=== PATIENT | male | born 1960 | race Caucasian/White ===

== ENCOUNTER 2021-07-17 14:38 | Emergency (ER) | payer SELFPAY ==
[~2021-07-17] VITALS: Ht 172.7 cm; Wt 127.0 kg
[2021-07-17] MEDS ORDERED: ONDANSETRON 4 MG/2 ML (SDV) Z0FRAN IVP ONE (15:00)
[2021-07-17] MEDS ORDERED: fentaNYL INJ 100 MCG/2 ML AMP IVP ONE (15:00)
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
[2021-07-17 15:14] LABS: BASOPHILS % (AUTO) 0 % (0-10); EOSINOPHILS % (AUTO) 0 % (0-10); HEMATOCRIT 45 % (40-54); HEMOGLOBIN 14.1 g/dL (13.3-17.7); LYMPHOCYTES # (AUTO) 1.3 10^3/uL (1.0-4.0); LYMPHOCYTES % (AUTO) 13 % (12-44); MEAN CORPUSCULAR HEMOGLOBIN 28 pg (25-34); MEAN CORPUSCULAR HGB CONC 32 g/dL (32-36); MEAN CORPUSCULAR VOLUME 89 fL (80-99); MEAN PLATELET VOLUME 11.9 fL (9.0-12.2); MONOCYTES # (AUTO) 0.7 10^3/uL (0.0-1.0); MONOCYTES % (AUTO) 8 % (0-12); NEUTROPHILS # (AUTO) 7.2 10^3/uL (1.8-7.8); NEUTROPHILS % (AUTO) 78 % (42-75); PLATELET COUNT 347 10^3/uL (130-400); WHITE BLOOD COUNT 9.3 10^3/uL (4.3-11.0)
[2021-07-17 15:24] LABS: ALBUMIN 3.9 GM/DL (3.2-4.5); POTASSIUM 3.5 MMOL/L (3.6-5.0)
[2021-07-17 15:25] LABS: CALCIUM 9.1 MG/DL (8.5-10.1)
[2021-07-17 15:27] LABS: TOTAL PROTEIN 8.7 GM/DL (6.4-8.2)
[2021-07-17 15:28] LABS: BILIRUBIN,TOTAL 0.5 MG/DL (0.1-1.0)
[2021-07-17 15:30] LABS: CREATININE SERUM 1.08 MG/DL (0.60-1.30)
[2021-07-17 15:33] LABS: FIBRIN DEGRADATION PRODUCTS 15.54 UG/ML (0.00-0.49); PROTHROMBIN TIME PATIENT 13.5 SEC (12.2-14.7)
[2021-07-17] MEDS ORDERED: NS 100 ML (IVPB) BAG IV ONE (16:00)
[2021-07-17] MEDS ORDERED: HOLD METFORMIN - RECEIVED CONTRAST 20 ML VIAL IV SCH (16:00)
[2021-07-17] MEDS ORDERED: IOHEXOL 350 MG/ML 100 ML (OMNIPAQUE 350) VIAL IV ONE (16:00)
--- NOTE | 2021-07-17 16:12 | Diagnostic Imaging Report ---
EXAMINATION: Portable erect AP chest at 4:03 p.m. INDICATION: Cough, shortness of breath. COMPARISON: There are no prior studies available for comparison. The heart size is within normal limits. There are alveolar/interstitial pulmonary infiltrates involving both lung bases consistent with pneumonia/atelectasis. The possibility of Covid 19 should be considered. The upper lungs are clear. There is no significant pleural effusion identified. The mediastinum is not widened. The osseous structures are intact. IMPRESSION: 1. There is bibasilar pneumonia/atelectasis. The possibility that these findings are related to Covid 19 should certainly be considered. 2. Reportedly, CTA of the chest is pending for further study. Dictated by: Dictated on workstation # [id number]
[2021-07-17] MEDS ORDERED: morphine INJ 10 MG/ML 1ML (SYR OR VIAL) IVP STA (16:16)
--- NOTE | 2021-07-17 16:29 | Diagnostic Imaging Report ---
INDICATION: Elevated d-dimer, soa abdominal pain. EXAMINATION: CTA chest, abdomen and pelvis. Thin axial sections through the chest, abdomen and pelvis are obtained following intravenous contrast bolus. Multiplanar MIP images were reconstructed and reviewed. All CT scans use one or more of the following dose optimizing techniques: automated exposure control, MA and/or KvP adjustment based on patient size and exam type or iterative reconstruction. COMPARISON: There are no prior CT chest, abdomen and pelvis examinations available for comparison. FINDINGS: The plain film examination of the chest performed just prior to the study noted bibasilar pneumonia/atelectasis. On this exam, there is mild bibasilar atelectasis/pneumonia involving each lung base. There is also a small amount of fluid in the left lung base and minimal fluid in the right lung base. The fluid in the left lung base measures 1.7 cm in maximum depth while the fluid in the right lung base measures only 5 mm. In addition to the atelectasis/infiltrate there is a lobulated somewhat spiculated mass in the left midlung. This measures 2.3 x 3.2 cm. This could represent a focal area of pneumonia/atelectasis. The possibility that this is neoplastic in nature cannot be entirely excluded. The upper lungs are generally clear. The heart size is within normal limits. The aorta is not abnormally dilated and there is no sign of a dissection. There is no defect within the pulmonary arteries to indicate a pulmonary embolus. There is no mediastinal or hilar adenopathy. The thyroid gland, where visualized, is unremarkable. The images through the abdomen and pelvis show that there is a moderate to large amount of ascites. The liver and spleen are not enlarged and the liver does not have a cirrhotic appearance. Consequently, the etiology of the ascites is not certain. The pancreas, adrenals, gallbladder, kidneys, aorta, inferior vena cava and portal vein show no sign of an acute abnormality. The stomach is filled with fluid and difficult to assess. There is a fair amount of radiopaque material throughout the colon intermixed with fecal material. This could be secondary to ingested medication. There is no sign of a bowel obstruction. The urinary bladder and prostate gland are grossly unremarkable. The bone windows show no sign of a fracture or a destructive lesion. IMPRESSION: 1. There is mild bibasilar pneumonia/atelectasis and small bilateral pleural effusions. There is no acute cardiopulmonary abnormality noted otherwise. In particular, there is no sign of an aortic dissection or of a pulmonary embolus. 2. The 2.3 x 3.2 cm density in the left midlung is of uncertain etiology. While this could be related to pneumonia/atelectasis the possibility that this is neoplastic in nature cannot be entirely excluded. A short-term (4-6 week) follow-up CT chest exam would be recommended for further study. 3. There is a moderate to large volume of ascites. This is of uncertain etiology. 4. There is no acute abnormality of the abdomen or pelvis noted otherwise. Dictated by: Dictated on workstation # [id number]
[2021-07-17] MEDS ORDERED: ACHD5005 PO (17:42)
[2021-07-17] MEDS ORDERED: CEFD300C3 PO (17:42)
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
[2021-07-17] MEDS ORDERED: CEFDINIR 300 MG (OMNICEF) CAP PO ONE (17:45)
[2021-07-17 18:04] VITALS: BP 115/93
[2021-07-17 19:26] LABS: ALBUMIN,BODY FLUID 2.5 G/DL; AMYLASE,BODY FLUID 23 U/L; BODY FLUID TRIGLYCERIDES 52 MG/DL; GLUCOSE,BODY FLUID 244 MG/DL
--- NOTE | 2021-07-17 19:30 | OPERATIVE REPORT ---
DATE OF SERVICE: 07/17/2021 PREOPERATIVE DIAGNOSIS: Symptomatic ascites. POSTOPERATIVE DIAGNOSIS: Symptomatic ascites. PROCEDURE PERFORMED: Paracentesis under ultrasound guidance. SURGEON: Mattie Santana MD. ANESTHESIA: Local. ESTIMATED BLOOD LOSS: Minimal. FINDINGS: Straw yellow transudative fluid. DISPOSITION: The patient tolerated the procedure well. INDICATIONS FOR PROCEDURE: The patient is a 61-year-old male, who states that he has developed abdominal distention for the past month of unknown cause. He states that with the abdominal distention, this has caused a compressive effect on his lungs and exertional shortness of breath. An ultrasound of the abdomen was performed, which did show significant amount of ascites. He does not have a primary care physician and does not report any past medical history from what he knows of. He does have a positive fluid shift wave upon examination consistent with ascites as well. DESCRIPTION OF PROCEDURE: The abdomen was prepped and draped in a standard surgical fashion. In the right lower abdominal quadrant, the skin, subcutaneous tissue, fascia, and muscle layers as well as the peritoneal lining were anesthetized using 1% lidocaine. A vertical skin incision was made using a #11 blade and the trocar and catheter were then introduced withdrawing of straw yellow transudative fluid. The catheter was then advanced over the trocar without any resistance. The catheter was then connected to vacuum container, where at least 3 liters of straw-yellow transudative fluid was evacuated. Catheter was then removed and covered with Op-Site. The patient tolerated the procedure well. We will send the fluid off for laboratory analysis as well as cytology. Job ID: [id number] DocumentID: [id number] Dictated Date: 07/17/2021 17:23:48 Sander Operator Date: 07/17/2021 19:30:12 Dictated By: MATTIE SANTANA MD
[2021-07-17 19:40] LABS: LDH,BODY FLUID 205 U/L
[2021-07-17 20:21] LABS: BODY FLUID APPEARENCE CLEAR; BODY FLUID COLOR YELLOW; BODY FLUID RBC COUNT 6 /uL; BODY FLUID SOURCE PERITONEAL; BODY FLUID WBC TOTAL COUNT 14 /uL
[2021-07-17 20:57] LABS: BF OTHER CELLS 0 %; LYMPHOCYTES,BODY FLUID 52 %
== END 2021-07-17 18:04 | disposition other institution (70) ==
LOC: ER 14:42
DX: R18.8 Other ascites (principal); R91.1 Solitary pulmonary nodule; Z20.822 Contact with and (suspected) exposure to COVID-19
CPT/HCPCS: 36415; 71045; 71275; 74177; 80053; 82042; 82150; 82945; 83615; 83690; 83880; 84478; 85025; 85379; 85610; 86141; 87070; 87205; 87636; 89051

== ENCOUNTER 2021-07-23 17:03 | Emergency (ER) | payer SELFPAY ==
[~2021-07-23] VITALS: Ht 172.7 cm; Wt 81.6 kg
[~2021-07-23 17:03] MED LIST: ACHD5005 PO; CEFD300C3 PO
[2021-07-23 17:35] LABS: BASOPHILS % (AUTO) 0 % (0-10); EOSINOPHILS % (AUTO) 0 % (0-10); HEMATOCRIT 44 % (40-54); HEMOGLOBIN 14.6 g/dL (13.3-17.7); LYMPHOCYTES # (AUTO) 0.8 X 10^3 (1.0-4.0); LYMPHOCYTES % (AUTO) 8 % (12-44); MEAN CORPUSCULAR HEMOGLOBIN 28 pg (25-34); MEAN CORPUSCULAR HGB CONC 33 g/dL (32-36); MEAN CORPUSCULAR VOLUME 85 fL (80-99); MEAN PLATELET VOLUME 11.8 fL (9.0-12.2); MONOCYTES # (AUTO) 0.7 X 10^3 (0.0-1.0); MONOCYTES % (AUTO) 7 % (0-12); NEUTROPHILS # (AUTO) 8.6 X 10^3 (1.8-7.8); NEUTROPHILS % (AUTO) 84 % (42-75); PLATELET COUNT 376 10^3/uL (130-400); WHITE BLOOD COUNT 10.3 10^3/uL (4.3-11.0)
[2021-07-23 17:50] LABS: CHLORIDE 87 MMOL/L (98-107); POTASSIUM 4.7 MMOL/L (3.6-5.0); SODIUM 130 MMOL/L (135-145)
[2021-07-23 17:51] LABS: ACETAMINOPHEN < 10 UG/ML (10-30); ALANINE AMINOTRANSFERASE 8 U/L (0-55); ALBUMIN 3.4 GM/DL (3.2-4.5); ALKALINE PHOSPHATASE 69 U/L (40-136); BILIRUBIN,TOTAL 0.4 MG/DL (0.1-1.0); BUN/CREATININE RATIO 33; CARBON DIOXIDE 29 MMOL/L (21-32); CREATININE SERUM 1.01 MG/DL (0.60-1.30); GFR ESTIMATED 84; GLUCOSE 368 MG/DL (70-105); SALICYLATE < 0.3 MG/DL (5.0-20.0); TOTAL PROTEIN 8.3 GM/DL (6.4-8.2)
--- NOTE | 2021-07-23 17:56 | Diagnostic Imaging Report ---
EXAMINATION: Chest 1 view. HISTORY: Short of breath. COMPARISON: 07/17/2021. FINDINGS: Heart size and pulmonary vasculature are normal. There are linear opacities within the lung bases. Patchy interstitial opacities are also present within the lower lungs. No pleural effusion or pneumothorax. Degenerative changes of the thoracic spine. Osseous structures are otherwise intact. IMPRESSION: Linear opacities in the lung bases which may represent scarring with superimposed atelectasis, atypical infection or pneumonia. The lungs are minimally improved from 07/17/2021. Dictated by: Dictated on workstation # [id number]
[2021-07-23] MEDS ORDERED: NS IV 1000 ML 1,000 ML IV STA (18:02)
[2021-07-23] MEDS ORDERED: morphine INJ 10 MG/ML 1ML (SYR OR VIAL) IVP STA (18:02)
[2021-07-23] MEDS ORDERED: ONDANSETRON 4 MG/2 ML (SDV) Z0FRAN IVP STA (18:02)
[2021-07-23 18:03] LABS: LYMPHOCYTES % (MANUAL) 6 %; MONOCYTES % (MANUAL) 4 %; NEUTROPHILS % (MANUAL) 90 %
[2021-07-23] MEDS ORDERED: IOHEXOL 350 MG/ML 100 ML (OMNIPAQUE 350) VIAL IV ONE (18:15)
[2021-07-23] MEDS ORDERED: CATHETER FLUSH 10 ML SYR IV PRN (18:15)
[2021-07-23] MEDS ORDERED: NS 100 ML (IVPB) BAG IV ONE (18:15)
[2021-07-23] MEDS ORDERED: HOLD METFORMIN - RECEIVED CONTRAST 20 ML VIAL IV SCH (18:15)
--- NOTE | 2021-07-23 18:28 | ED General ---
General Chief Complaint: Abdominal/GI Problems Stated Complaint: UNABLE TO EAT,VOMITTING Nursing Triage Note: PT ARRIVED BY PRIVATE VEHICLE WITH CHIEF COMPLAINT OF ABDOMINAL PAIN. PT HAD BEEN CHECKED IN AND JOSE ASKED PATIENT'S TO PUT A MASK ON AND SHE WAS YELLING AT THE TOP OF HER LUNGS AT REGISTRATION. I WENT UP AND SHE WOULD NOT ALLOW ME TO TALK. I CALLED PD TO COME ESCORT HER OUT. AFTER SHE WALKED OUTSIDE, THE PATIENT WAS WHEELED BACK TO ROOM 3 WHERE HE WAS ASSISTED TO THE BED. PT WAS SEEN LAST MONDAY NIGHT IN [facility] WHERE HE SAID THEY DRAINED 6 LITERS OF FLUID OFF OF HIS STOMACH. PT STATED HE WENT TO FOLLOWUP AND ESTHER WOULD NOT SEE HIM BECAUSE HE DOES NOT HAVE INSURANCE. PT STAED HE WANTS ANSWERS. PT STATED HIS PAIN HAS INCREASED. VITALS WERE DONE, IV WAS STARTED, PT WAS HOOKED UP TO RN HOUSE SUPERVISOR, AND REPORT WAS GIVEN TO THE PROVIDER. Source of Information: Patient, Old Records History of Present Illness Date Seen by Provider: Jul 23, 2021 Time Seen by Provider: 17:08 Initial Comments 61-year-old male presenting with complaints of nausea and vomiting for 12 days and abdominal distention with pain. He is short of breath due to the abdominal distention. He denies having any fever or chills. He has not been able to keep anything down at home. He states that even drinking fluids were having a small amount of food might stay down for a short while but then it comes back up. He was seen last weekend at the emergency department and [place] and had 5 L of ascites drawn off of his abdomen. He states that he had never known that it was ascites or fluid that was in his belly until then. He was doing a little better and was sent home. He was to follow-up with Dr. SANTANA about the results of the paracentesis but when he went to the clinic he states that they had wanted money upfront to be seen since he does not have insurance. He had left without being seen in the clinic and because he was still having issues he came to the emergency department today. He denies having any primary provider to follow-up with. He states that he moved here from [place] and has never established with a provider. He denies having a history of liver disease or cancer. He does have a spot that looked concerning on his lung when they did a CT last week and it was recommended that a repeat scan be obtained in 4 to 6 weeks. Timing/Duration: Other (Over 12 days of nausea and vomiting and not being able to keep anything down) Modifying Factors: worse with Eating Associated Systoms: No Chest Pain, No Cough, No Diaphoresis, No Fever/Chills, No Headaches; Malaise, Nausea/Vomiting; No Seizure; Shortness of Air; No Syncope; Weakness (generalized) Allergies and Home Medications Allergies Coded Allergies: canola oil (Verified Allergy, Unknown, 07/17/21) Patient Home Medication List Home Medication List Reviewed: Yes Cefdinir (Cefdinir) 300 Mg Capsule, 300 MG PO BID Prescribed by: MINE QUINTANILLA on 07/17/211741 Hydrocodone/Acetaminophen (Hydrocodone-Acetamin 5-325 mg) 1 Each Tablet, 1 TAB PO Q4H PRN for PAIN-MODERATE (5-7) Prescribed by: MINE QUINTANILLA on 07/17/211742 Hydrocodone/Acetaminophen (Hydrocodone-Acetamin 5-325 mg) 1 Each Tablet, 1 TAB PO Q6H PRN for PAIN-SEVERE (8-10) Prescribed by: SOFIA POST on 07/23/211936 Ondansetron (Ondansetron Odt) 4 Mg Tab.rapdis, 4 MG PO Q6H PRN for NAUSEA/VOMITING Prescribed by: SOFIA POST on 07/23/211935 Review of Systems Review of Systems Constitutional: see HPI, malaise, weakness (general) EENTM: no symptoms reported Respiratory: short of breath; No stridor, No wheezing Cardiovascular: No chest pain, No edema Gastrointestinal: see HPI, abdominal pain (central abdominal pain feeling like it is stretching), dysphagia (pain when he swallows); No hematemesis, No jaundice; nausea, vomiting Genitourinary: decreased output; No dysuria Musculoskeletal: back pain Skin: dryness Psychiatric/Neurological: Anxiety, Weakness (generalized) Past Nntxnlx-Mjfepe-Zowgtc Hx Patient Social History Tobacco Use?: Yes Tobacco type used: Cigarettes Substance use?: No Alcohol Use?: No Pt feels they are or have been: No Immunizations Up To Date First/Initial COVID19 Vaccinat: NONE Second COVID19 Vaccination Jaspreet: NONE Third COVID19 Vaccination Date: NONE Physical Exam Vital Signs Vital Signs - First Documented 07/23/21 17:05 Temp 36.1 Pulse 103 Resp 16 B/P (MAP) 117/81 (93) Pulse Ox 98 O2 Delivery Room Air Capillary Refill : Less Than 3 Seconds Height, Weight, BMI Height: '" Weight: lbs. oz. kg; 27.00 BMI Method: General Appearance: Anxious, Chronically ill, Other (distended abdomen) HEENT: PERRL/EOMI; No Moist Mucous Membranes (slightly dry mucous membranes) Neck: Full Range of Motion, Normal Inspection, Non Tender, Supple Respiratory: Chest Non Tender, No Accessory Muscle Use, No Respiratory Distress, Decreased Breath Sounds Cardiovascular: Regular Rate, Rhythm, No Murmur, Normal Peripheral Pulses Gastrointestinal: No Pulsatile Mass, Soft, Abnormal Bowel Sounds (hypoactive bowel sounds), Distended (fluid wave on exam); No Rebound; Tenderness (diffuse tenderness with pain worse in middle of abdomen) Extremity: Normal Capillary Refill, Normal Inspection, No Pedal Edema Neurologic/Psychiatric: Alert, Oriented x3 Skin: Normal Color, Warm/Dry Focused Exam Lactate Level 07/23/21 17:20: Lactic Acid Level 1.76 Lactic Acid Level Laboratory Tests Test 07/23/21 17:20 Lactic Acid Level 1.76 MMOL/L (0.50-2.00) Progress/Results/Core Measures Suspected Sepsis SIRS Temperature: Pulse: 103 Respiratory Rate: 16 Laboratory Tests 07/23/21 17:20: White Blood Count 10.3 Blood Pressure 117 /81 Mean: 93 07/23/21 17:20: Lactic Acid Level 1.76 Laboratory Tests 07/23/21 15:20: Creatinine 1.01, Total Bilirubin 0.4 07/23/21 17:20: Platelet Count 376 Results/Orders Lab Results Laboratory Tests Test 07/23/21 15:20 07/23/21 17:20 Range/Units Sodium Level 130 L 135-145 MMOL/L Potassium Level 4.7 3.6-5.0 MMOL/L Chloride Level 87 L 98-107 MMOL/L Carbon Dioxide Level 29 21-32 MMOL/L Anion Gap 14 5-14 MMOL/L Blood Urea Nitrogen 33 H 7-18 MG/DL Creatinine 1.01 0.60-1.30 MG/DL Estimat Glomerular Filtration Rate 84 BUN/Creatinine Ratio 33 Glucose Level 368 H 70-105 MG/DL Calcium Level 9.0 8.5-10.1 MG/DL Corrected Calcium 9.5 8.5-10.1 MG/DL Total Bilirubin 0.4 0.1-1.0 MG/DL Aspartate Amino Transf (AST/SGOT) 8 5-34 U/L Alanine Aminotransferase (ALT/SGPT) 8 0-55 U/L Alkaline Phosphatase 69 40-136 U/L Total Protein 8.3 H 6.4-8.2 GM/DL Albumin 3.4 3.2-4.5 GM/DL Salicylates Level < 0.3 L 5.0-20.0 MG/DL Acetaminophen Level < 10 L 10-30 UG/ML Serum Alcohol < 10 <10 MG/DL White Blood Count 10.3 4.3-11.0 10^3/uL Red Blood Count 5.20 4.30-5.52 10^6/uL Hemoglobin 14.6 13.3-17.7 g/dL Hematocrit 44 40-54 % Mean Corpuscular Volume 85 80-99 fL Mean Corpuscular Hemoglobin 28 25-34 pg Mean Corpuscular Hemoglobin Concent 33 32-36 g/dL Red Cell Distribution Width 12.5 10.0-14.5 % Platelet Count 376 130-400 10^3/uL Mean Platelet Volume 11.8 9.0-12.2 fL Immature Granulocyte % (Auto) 1 % Neutrophils (%) (Auto) 84 H 42-75 % Lymphocytes (%) (Auto) 8 L 12-44 % Monocytes (%) (Auto) 7 0-12 % Eosinophils (%) (Auto) 0 0-10 % Basophils (%) (Auto) 0 0-10 % Neutrophils # (Auto) 8.6 H 1.8-7.8 X 10^3 Lymphocytes # (Auto) 0.8 L 1.0-4.0 X 10^3 Monocytes # (Auto) 0.7 0.0-1.0 X 10^3 Eosinophils # (Auto) 0.0 0.0-0.3 10^3/uL Basophils # (Auto) 0.0 0.0-0.1 10^3/uL Immature Granulocyte # (Auto) 0.1 0.0-0.1 10^3/uL Neutrophils % (Manual) 90 % Lymphocytes % (Manual) 6 % Monocytes % (Manual) 4 % Lactic Acid Level 1.76 0.50-2.00 MMOL/L Ammonia 43 H 11-32 UMOL/L My Orders Orders - SOFIA POST MD Cbc With Automated Diff (07/23/21 17:28) Comprehensive Metabolic Panel (07/23/21 17:28) Alcohol (07/23/21 17:28) Acetaminophen (07/23/21 17:28) Salicylate (07/23/21 17:28) Ekg Tracing (07/23/21 17:28) Ed Iv/Invasive Line Start (07/23/21 17:28) Monitor-Rhythm Ecg Trace Only (07/23/21 17:28) Blood Culture (07/23/21 17:28) Lactic Acid Analyzer (07/23/21 17:) Chest 1 View Ap/Pa Only (07/23/21:) Ammonia (07/23/21:) Manual Differential (07/23/21 17:20) Ns Iv 1000 Ml (Sodium Chloride 0.9%) (07/23/21 18:02) Ondansetron Injection (Zofran Injectio (07/23/21 18:02) Morphine Injection (Morphine Injection (07/23/21 18:02) Ct Abdomen/Pelvis W (07/23/21 18:02) Iohexol Injection (Omnipaque 350 Mg/Ml 1 (07/23/21 18:15) Received Contrast (Hold Metformin- Contr (07/23/21 18:15) Sodium Chloride Flush (Catheter Flush Sy (07/23/21 18:15) Ns (Ivpb) (Sodium Chloride 0.9% Ivpb Bag (07/23/21 18:15) Rx-Ondansetron Po (Rx-Zofran Po) (07/23/21 20:00) Rx-Hydrocodone/Apap 5-325 Mg (Rx-Vicodin (07/23/21 20:00) Medications Given in ED Current Medications Medications Dose Ordered Sig/Leander Route Start Time Stop Time Status Last Admin Dose Admin Acetaminophen/ Hydrocodone Bitart 1 ea Q6H PRN PO 07/23/21 20:00 07/23/21 19:51 1 EA Iohexol 100 ml ONCE ONCE IV 07/23/21 18:15 07/23/21 18:16 DC 07/23/21 18:20 100 ML Ondansetron HCl 4 mg Q6H PRN PO 07/23/21 20:00 07/23/21 19:52 4 MG Sodium Chloride 10 ml NEEDED PRN IV 07/23/21 18:15 07/23/21 18:20 10 ML Sodium Chloride 100 ml ONCE ONCE IV 07/23/21 18:15 07/23/21 18:16 DC 07/23/21 18:20 100 ML Vital Signs/I&O 07/23/21 17:05 Temp 36.1 Pulse 103 Resp 16 B/P (MAP) 117/81 (93) Pulse Ox 98 O2 Delivery Room Air Capillary Refill : Less Than 3 Seconds Blood Pressure Mean: 93 Progress Note #1: Progress Note Advised the patient that since he came to a stand-alone ED, we did not have the ideal set up to drain fluid from his belly but could run tests to see if any change from last week to explain his pain and continued nausea and vomiting. Will check basic labs including cultures, lactic acid, urine, alcohol, acetaminophen, ammonia level. obtain a chest x-ray to look for signs of pneumonia or fluid buildup. Will likely obtain a CT scan of the abdomen and pelvis to further evaluate his ascites. Try giving IV fluids for hydration, Zofran for his nausea, morphine for his pain since he reported that that had helped last week. Progress Note #2: Progress Note Labs appear stable from last week with no acute significant change in his CBC. His alcohol acetaminophen and salicylate levels are all negative. His lactic acid is negative. His chemistry panel shows elevated glucose to 386. He was 266 last week. His sodium was 130. This could be related to electrolyte shifts from his body compensating for the 5 L that were drawn off from his ascitic fluid in his belly. His nausea was improved with medication here. He was asking for ice chips and something to drink. His electrocardiogram did not show any acute ischemia. Chest x-ray appears stable from last week with minimal improvement. Progress Note #3: Progress Note CT scan shows signs of carcinoid peritoneal changes. This could be carcinomatosis from a cancer somewhere in his body. There was no definite s ource of cancer seen on the CT. He does have the mass seen in his lung on scan from last week. The fluid that was drawn off for ascites was tested for culture but I did not see any testing specifically for cytology to look for cancerous type cells. He did have evaluation to look at white blood cells and a chemistry make-up of the fluid. He may need an additional paracentesis to do testing specifically to look for cancer. He may also need to see a oncologist but initially he would need to follow-up with surgery. Since his symptoms are doing a lot better and his testing is stable will discharge to home with medication for nausea and pain. Encouraged to work with the [facility] clinic to get established with a surgeon in follow-up for his symptoms. They can help him get care and further work up for elevated glucose as well. As patient was leaving he did request take-home packs of medication so he has something for overnight with the pharmacies closing. A 4 pack of Zofran and hydrocodone were sent with the patient and prescriptions were sent to the pharmacy the [facility] here in [place] ECG Initial ECG Impression Date: Jul 23, 2021 Initial ECG Impression Time: 17:47 Initial ECG Rate: 97 Initial ECG Rhythm: Normal Sinus Comment AcuteNormal sinus rhythm with a heart rate of 97 bpm. TN interval 152 ms. Low voltage precordial leads. No acute ST elevation. There is artifact on the tracing. QT interval 347 ms with a QTc interval of 441 ms. There is no prior tracing available for comparison. Diagnostic Imaging Diagonstic Imaging: Xray Plain Films/CT/US/NM/MRI: chest Comments [facility]. [place], [place] NAME: ELEAZAR DAVIS [facility] REC#: [id number] PT STATUS: REG ER : 1960 PHYSICIAN: SOFIA POST MD ADMIT DATE: 07/23/21/ER FS Signed Date of Exam:07/23/21 CHEST 1 VIEW AP/PA ONLY EXAMINATION: Chest 1 view. HISTORY: Short of breath. COMPARISON: 07/17/2021. FINDINGS: Heart size and pulmonary vasculature are normal. There are linear opacities within the lung bases. Patchy interstitial opacities are also present within the lower lungs. No pleural effusion or pneumothorax. Degenerative changes of the thoracic spine. Osseous structures are otherwise intact. IMPRESSION: Linear opacities in the lung bases which may represent scarring with superimposed atelectasis, atypical infection or pneumonia. The lungs are minimally improved from 07/17/2021. Dictated by: Dictated on workstation # [id number] Dict: 07/23/211751 Trans: 07/23/211757 [facility] [id number] Interpreted by: DANA BENAVIDES DO Electronically signed by: DANA BENAVIDES DO 07/23/211757 Reviewed: Reviewed by Me Diagonstic Imaging: CT Plain Films/CT/US/NM/MRI: abdomen, pelvis Comments NAME: ELEAZAR DAVIS [facility] REC#: [id number] PT STATUS: REG ER : 1960 PHYSICIAN: SOFIA POST MD ADMIT DATE: 07/23/21/ER FS Signed Date of Exam:07/23/21 CT ABDOMEN/PELVIS W EXAMINATION: CT abdomen and pelvis with intravenous contrast. TECHNIQUE: Multiple contiguous axial images were obtained through the abdomen and pelvis after the uneventful administration of intravenous contrast. All CT scans use one or more of the following dose optimizing techniques: automated exposure control, MA and/or KvP adjustment based on patient size and exam type or iterative reconstruction. HISTORY: Abdominal distention, abdominal pain, n/v COMPARISON: 07/17/2021. FINDINGS: Lung bases: Trace right and small left pleural effusion with adjacent atelectasis or consolidation at the lung bases. Solid organs: The liver is normal without focal lesion. The gallbladder is normal. There is no biliary ductal dilation. Pancreas is normal. Spleen is normal. Adrenal glands are normal. There is a left renal cyst which requires no follow-up. No hydronephrosis. Bowel: The stomach and small bowel are normal without obstruction. The colon is unremarkable. No findings of acute appendicitis. Peritoneum: There is a moderate amount of abdominal and pelvic ascites. There is nodular thickening of the peritoneum with nodularity seen throughout the omentum. No suspicious lymphadenopathy. Vasculature: Calcification of the aorta without aneurysm. Musculoskeletal: Degenerative changes of the spine without suspicious osseous lesion or compression fracture. Pelvis: The prostate gland is enlarged. Diffuse bladder wall thickening. IMPRESSION: 1. Redemonstrated moderate abdominal ascites. 2. Thickening of the peritoneum with nodularity seen within the omentum. These findings can be seen with long-standing ascites but peritoneal carcinomatosis could have a similar appearance. Recommend correlation with diagnostic paracentesis if this has not already been performed as well as any history of cancer. 3. No other acute abnormality in the abdomen or pelvis. Dictated by: Dictated on workstation # [id number] Dict: 07/23/211826 Trans: 07/23/211834 [facility] [id number] Interpreted by: DANA BENAVIDES DO Electronically signed by: DANA BENAVIDES DO 07/23/211834 Reviewed: Reviewed by Me Departure Impression Primary Impression: Ascites Qualified Codes: R18.8 - Other ascites Additional Impressions: Peritoneal carcinomatosis Hyperglycemia, unspecified Nausea and vomiting in adult Disposition: 01 HOME, SELF-CARE Condition: Stable Departure-Patient Inst. Decision time for Depature: 19:31 Referrals: MELVINA MAXWELL DO NO,LOCAL PHYSICIAN (PCP) Primary Care Physician [facility] Patient Instructions: Abdominal Pain, Adult ED, Fluid in the Belly (Ascites) (DC), High Blood Sugar, Adult ED, Nausea and Vomiting, Adult ED Add. Discharge Instructions: Call the [facility] clinic at [phone] to get established with a provider and have them help you get in with a surgeon for further testing and treatment of your ascites (fluid in your abdomen) and they can also help check about your elevated sugar levels and help with medicines or treatment if you need something for the sugars. Use the nausea medicine to help keep your stomach settled so you can eat and drink better. All discharge instructions reviewed with patient and/or family. Voiced understanding. Scripts Hydrocodone/Acetaminophen (Hydrocodone-Acetamin 5-325 mg) 1 Each Tablet 1 TAB PO Q6H PRN for PAIN-SEVERE (8-10) for 5 Days, #20 TAB 0 Refills Prov: SOFIA POST MD 07/23/21 Ondansetron (Ondansetron Odt) 4 Mg Tab.rapdis 4 MG PO Q6H PRN for NAUSEA/VOMITING for 5 Days, #20 TAB 0 Refills Prov: SOFIA POST MD 07/23/21 SOFIA POST MD Jul 23, 2021 18:28
--- NOTE | 2021-07-23 18:35 | Diagnostic Imaging Report ---
EXAMINATION: CT abdomen and pelvis with intravenous contrast. TECHNIQUE: Multiple contiguous axial images were obtained through the abdomen and pelvis after the uneventful administration of intravenous contrast. All CT scans use one or more of the following dose optimizing techniques: automated exposure control, MA and/or KvP adjustment based on patient size and exam type or iterative reconstruction. HISTORY: Abdominal distention, abdominal pain, n/v COMPARISON: 07/17/2021. FINDINGS: Lung bases: Trace right and small left pleural effusion with adjacent atelectasis or consolidation at the lung bases. Solid organs: The liver is normal without focal lesion. The gallbladder is normal. There is no biliary ductal dilation. Pancreas is normal. Spleen is normal. Adrenal glands are normal. There is a left renal cyst which requires no follow-up. No hydronephrosis. Bowel: The stomach and small bowel are normal without obstruction. The colon is unremarkable. No findings of acute appendicitis. Peritoneum: There is a moderate amount of abdominal and pelvic ascites. There is nodular thickening of the peritoneum with nodularity seen throughout the omentum. No suspicious lymphadenopathy. Vasculature: Calcification of the aorta without aneurysm. Musculoskeletal: Degenerative changes of the spine without suspicious osseous lesion or compression fracture. Pelvis: The prostate gland is enlarged. Diffuse bladder wall thickening. IMPRESSION: 1. Redemonstrated moderate abdominal ascites. 2. Thickening of the peritoneum with nodularity seen within the omentum. These findings can be seen with long-standing ascites but peritoneal carcinomatosis could have a similar appearance. Recommend correlation with diagnostic paracentesis if this has not already been performed as well as any history of cancer. 3. No other acute abnormality in the abdomen or pelvis. Dictated by: Dictated on workstation # [id number]
[2021-07-23] MEDS ORDERED: ONDA4TAB11 PO (19:36)
[2021-07-23] MEDS ORDERED: ACHD5005 PO (19:36)
[2021-07-23 19:39] VITALS: BP 130/80
[2021-07-23] MEDS ORDERED: RX-ONDANSETRON 4 MG ODT (ZOFRAN) PPK #4 PO PRN (20:00)
== END 2021-07-23 19:58 | disposition home or self-care (01) ==
LOC: EDUNIT# 17:03 → ER FS 17:04
DX: R18.8 Other ascites (principal); C78.6 Secondary malignant neoplasm of retroperitoneum and peritoneum; R73.9 Hyperglycemia, unspecified; R11.2 Nausea with vomiting, unspecified; F17.210 Nicotine dependence, cigarettes, uncomplicated
CPT/HCPCS: 36415; 71045; 74177; 80053; 82140; 83605; 85007; 85027; 87040; 93005; 93041; 96361; 96374; 96375; 99284; G0480 ×3; 80320; 80329

== ENCOUNTER 2021-08-08 11:19 | Inpatient (IN) | payer MEDICARE, OTHER ==
[~2021-08-08] VITALS: Ht 172.7 cm; Wt 65.8 kg
[~2021-08-08 11:19] MED LIST changes: +ONDA4TAB11 PO
[2021-08-08] MEDS ORDERED: morphine INJ 10 MG/ML 1ML (SYR OR VIAL) IVP STA ×3 (11:40→14:51)
[2021-08-08] MEDS ORDERED: LIDOCAINE/EPI 1%-1:100,000 (XYLOCAINE) 20ML INJ STA (11:40)
[2021-08-08] MEDS ORDERED: ACETAMINOPHEN 500 MG TAB (TYLENOL) PO PRN (11:45)
[2021-08-08] MEDS ORDERED: ONDANSETRON 4 MG/2 ML (SDV) Z0FRAN IV PRN (11:45)
[2021-08-08] MEDS ORDERED: LACTATED RINGERS 1,000 ML IV ONE (11:45)
[2021-08-08] MEDS ORDERED: ONDANSETRON 4 MG/2 ML (SDV) Z0FRAN IVP ONE (11:45)
--- NOTE | 2021-08-08 11:56 | ED Abdominal Pain ---
General Stated Complaint: STOMACH PAIN/BULGE IN STOMACH/SOB Source of Information: Patient, Family Exam Limitations: No Limitations History of Present Illness Date Seen by Provider: Aug 08, 2021 Time Seen by Provider: 11:23 Initial Comments 61-year-old male with no prior significant past medical history, but recently has been seen in our system multiple times for abdominal pain and ascites. CT imaging concerning for potential lung mass as well as potential carcinomatosis in his abdomen. He had a large-volume paracentesis done recently and was supposed to follow-up as an outpatient but he left that visit before being seen. He says over the past couple days the volume of fluid in his abdomen has increased significantly and now he is having severe sharp pain all over his abdomen. He says he felt like it hurt the entire drive here. He says he felt like he was warm but never took his temperature to know if he had a fever. He says he has had nausea and nonbloody nonbilious vomiting going on for weeks now which has unchanged. He also had a normal bowel movement this morning. Is otherwise denying any other acute complaints. Allergies and Home Medications Allergies Coded Allergies: canola oil (Verified Allergy, Unknown, 07/17/21) Patient Home Medication List Home Medication List Reviewed: Yes Cefdinir (Cefdinir) 300 Mg Capsule, 300 MG PO BID Prescribed by: MINE QUINTANILLA on 07/17/211741 Hydrocodone/Acetaminophen (Hydrocodone-Acetamin 5-325 mg) 1 Each Tablet, 1 TAB PO Q4H PRN for PAIN-MODERATE (5-7) Prescribed by: MINE QUINTANILLA on 07/17/211742 Hydrocodone/Acetaminophen (Hydrocodone-Acetamin 5-325 mg) 1 Each Tablet, 1 TAB PO Q6H PRN for PAIN-SEVERE (8-10) Prescribed by: SOFIA POST on 07/23/211936 Ondansetron (Ondansetron Odt) 4 Mg Tab.rapdis, 4 MG PO Q6H PRN for NAUSEA/VOMITING Prescribed by: SOFIA POST on 07/23/211935 Review of Systems Review of Systems Constitutional: chills; No fever EENTM: No Blurred Vision Respiratory: Denies Cough; Shortness of Air Cardiovascular: Denies Chest Pain Gastrointestinal: Abdominal Pain; Denies Diarrhea; Nausea, Vomiting Genitourinary: No Symptoms Reported Musculoskeletal: no symptoms reported Skin: no symptoms reported Psychiatric/Neurological: No Symptoms Reported Endocrine: No Symptoms Reported Hematologic/Lymphatic: No Symptoms Reported All Other Systems Reviewed Negative Unless Noted: Yes Past Fpcxaqo-Fyofoo-Fsvqpn Hx Patient Social History Tobacco Use?: No Smoking Status: Former Smoker Immunizations Up To Date First/Initial COVID19 Vaccinat: NONE Second COVID19 Vaccination Jaspreet: NONE Third COVID19 Vaccination Date: NONE Past Medical History Surgeries: No Physical Exam Vital Signs Vital Signs - First Documented 08/08/21 11:28 Pulse 104 Resp 22 B/P (MAP) 99/79 (86) Pulse Ox 91 O2 Delivery Room Air Capillary Refill : Height/Weight/BMI Height: '" Weight: lbs. oz. kg; 27.00 BMI Method: General Appearance: WD/WN, no apparent distress HEENT: PERRL/EOMI, normal ENT inspection, pharynx normal Neck: non-tender, full range of motion, supple, normal inspection Respiratory: chest non-tender, lungs clear, normal breath sounds, no respiratory distress Cardiovascular: regular rate, rhythm, no edema, no murmur Gastrointestinal: normal bowel sounds; No guarding; rebound, tenderness, other (Fluid wave) Extremities: normal range of motion, non-tender, normal inspection, no pedal edema, no calf tenderness, normal capillary refill Back: normal inspection, no CVA tenderness Neurologic/Psychiatric: 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 Ultrasound was utilized to assess for a good fluid pocket. The area was then cleaned with chlorhexidine and allowed to fully dry. He was anesthetized locally with lidocaine 2% with epinephrine with full anesthesia achieved. An 18-gauge needle was then used with a 60 cc syringe to do a diagnostic paracent esis without any complication. No bleeding afterwards and the patient tolerated the procedure well. Progress/Results/Core Measures Results/Orders Lab Results Laboratory Tests Test 08/08/21 12:10 08/08/21 12:32 Range/Units Body Fluid Source THORACEN Body Fluid Color YELLOW Body Fluid Appearance MOD CLDY Body Fluid WBC 664 /uL Body Fluid RBC 1725 /uL Body Fluid Polynuclear WBCs 2 % Body Fluid Mononuclear WBCs % Body Fluid Lymphocytes 98 % Body Fluid Eosinophils % Body Fluid Other Cells % Body Fluid Glucose 202 MG/DL Body Fluid Total Protein 4.4 G/DL Body Fluid Albumin 2.4 G/DL Body Fluid Lactate Dehydrogenase 230 U/L White Blood Count 9.8 4.3-11.0 10^3/uL Red Blood Count 4.85 4.30-5.52 10^6/uL Hemoglobin 13.4 13.3-17.7 g/dL Hematocrit 42 40-54 % Mean Corpuscular Volume 87 80-99 fL Mean Corpuscular Hemoglobin 28 25-34 pg Mean Corpuscular Hemoglobin Concent 32 32-36 g/dL Red Cell Distribution Width 13.3 10.0-14.5 % Platelet Count 377 130-400 10^3/uL Mean Platelet Volume 11.5 9.0-12.2 fL Immature Granulocyte % (Auto) 1 % Neutrophils (%) (Auto) 80 H 42-75 % Lymphocytes (%) (Auto) 12 12-44 % Monocytes (%) (Auto) 7 0-12 % Eosinophils (%) (Auto) 0 0-10 % Basophils (%) (Auto) 0 0-10 % Neutrophils # (Auto) 7.8 1.8-7.8 10^3/uL Lymphocytes # (Auto) 1.1 1.0-4.0 10^3/uL Monocytes # (Auto) 0.7 0.0-1.0 10^3/uL Eosinophils # (Auto) 0.0 0.0-0.3 10^3/uL Basophils # (Auto) 0.0 0.0-0.1 10^3/uL Immature Granulocyte # (Auto) 0.1 0.0-0.1 10^3/uL Prothrombin Time 14.3 12.2-14.7 SEC INR Comment 1.1 0.8-1.4 Activated Partial Thromboplast Time 27 24-35 SEC Sodium Level 133 L 135-145 MMOL/L Potassium Level 4.2 3.6-5.0 MMOL/L Chloride Level 93 L 98-107 MMOL/L Carbon Dioxide Level 26 21-32 MMOL/L Anion Gap 14 5-14 MMOL/L Blood Urea Nitrogen 32 H 7-18 MG/DL Creatinine 1.04 0.60-1.30 MG/DL Estimat Glomerular Filtration Rate 81 BUN/Creatinine Ratio 31 Glucose Level 257 H 70-105 MG/DL Lactic Acid Level 1.84 0.50-2.00 MMOL/L Calcium Level 8.9 8.5-10.1 MG/DL Corrected Calcium 9.3 8.5-10.1 MG/DL Total Bilirubin 0.5 0.1-1.0 MG/DL Aspartate Amino Transf (AST/SGOT) 13 5-34 U/L Alanine Aminotransferase (ALT/SGPT) 9 0-55 U/L Alkaline Phosphatase 63 40-136 U/L Lactate Dehydrogenase 127 125-220 U/L Total Protein 7.7 6.4-8.2 GM/DL Albumin 3.5 3.2-4.5 GM/DL My Orders Orders - LUCIUS CASTRO MD Cbc With Automated Diff (08/08/21 11:38) Comprehensive Metabolic Panel (08/08/21 11:38) Blood Culture (08/08/21 11:38) Urinalysis (08/08/21 11:38) Urine Culture (08/08/21 11:38) Protime With Inr (08/08/21 11:38) Partial Thromboplastin Time (08/08/21 11:38) Chest 1 View, Ap/Pa Only (08/08/21 11:38) Acetaminophen Tablet (Tylenol Tablet) (08/08/21 11:45) Ed Iv/Invasive Line Start (08/08/21 11:38) Ed Iv/Invasive Line Start (08/08/21 11:38) Vital Signs Adult Sepsis Patie Q15M (08/08/21 11:38) Ondansetron Injection (Zofran Injectio (08/08/21 11:45) O2 (08/08/21 11:38) Remove Rings In Anticipation O (08/08/21 11:38) Lactic Acid Analyzer (08/08/21 11:38) Lactated Ringers (Lr 1000 Ml Iv Solution (08/08/21 11:45) Lidocaine/Epi 1% 1:100,000 (Xylocaine /E (08/08/21 11:40) Morphine Injection (Morphine Injection (08/08/21 11:40) Ondansetron Injection (Zofran Injectio (08/08/21 11:45) Body Fluid Cell Count (08/08/21 11:50) Glucose,Body Fluid (08/08/21 11:50) Total Protein,Body Fluid (08/08/21 11:50) Body Fluid Culture (08/08/21 11:50) Ldh,Body Fluid (08/08/21 11:50) Albumin,Body Fluid (08/08/21 11:50) LDH (08/08/21 11:50) Lidocaine/Epi 2% 1:100,000 (Xylocaine/Ep (08/08/21 11:59) Ceftriaxone 1 Gm Pre-Mix (Rocephin 1 Gm (08/08/21 12:45) Morphine Injection (Morphine Injection (08/08/21 13:00) Morphine Injection (Morphine Injection (08/08/21 13:02) Medications Given in ED Current Medications Medications Dose Ordered Sig/Leander Route Start Time Stop Time Status Last Admin Dose Admin Acetaminophen 1,000 mg ONCE PRN PO 08/08/21 11:45 08/08/21 11:55 DC 08/08/21 11:54 1,000 MG Ceftriaxone Sodium/Dextrose 50 ml @ 100 mls/hr ONCE ONCE IV 08/08/21 12:45 08/08/21 13:14 DC 08/08/21 13:06 100 MLS/HR Lactated Ringer's 1,000 ml @ 0 mls/hr Q0M ONCE IV 08/08/21 11:45 08/08/21 11:46 DC 08/08/21 11:55 0 MLS/HR Lidocaine/ Epinephrine 20 ml STK-MED ONCE .ROUTE 08/08/21 11:59 08/08/21 12:02 DC 08/08/21 12:10 20 ML Ondansetron HCl 4 mg PRN PRN IV 08/08/21 11:45 08/08/21 11:55 DC 08/08/21 11:54 4 MG Vital Signs/I&O 08/08/21 11:28 Pulse 104 Resp 22 B/P (MAP) 99/79 (86) Pulse Ox 91 O2 Delivery Room Air Progress Progress Note : Progress Note 61-year-old male with above history coming in due to increasing ascites with abdominal pain. ABCs were intact and vitals were stable on presentation. Physical exam with significant abdominal pain with the fluid wave. I did a diagnostic paracentesis with greater than 600 white blood cells with 98% lymphocytes. SAAG was 1.1. He was given ceftriaxone after cultures were obtai bryce due to concerns for SBP. He received morphine IV x2 with frequent reassessment due to pain. He also received 1 L of IV fluids. Called and discussed the case with Dr. Molina, and the patient will be admitted under observation status for ruling out SBP until cultures come back. We then contacted our surgical colleagues to discuss doing a large-volume paracentesis for the patient's comfort. Diagnostic Imaging Diagonstic Imaging: Xray (chest) Comments [facility]. [place], [place] NAME: ELEAZAR DAVIS [facility] REC#: [id number] PT STATUS: REG ER : 1960 PHYSICIAN: LUCIUS CASTRO MD ADMIT DATE: 08/08/21/ER Draft Date of Exam:08/08/21 CHEST 1 VIEW, AP/PA ONLY INDICATION: Shortness of breath. Comparison made with a prior study from 07/23/2021. Comparison is also made to CTA of the chest from 07/17/2021. Findings: There is a progressive region of airspace opacity demonstrated within the left lung base as well as interval progression in the left-sided effusion. There now appears to be a small right-sided effusion present as well. There is no pneumothorax. Heart size appears stable. Central pulmonary vascular congestion is noted. IMPRESSION: 1. Increasing bibasilar pleural effusions as well as increased prominence of the central pulmonary vascularity. There additionally is some progressive airspace opacification demonstrated at the left lung base. This appears to have progressed, this may be a region of pneumonia but a mass is not excluded and this should be followed to resolution and ultimately reassessment with repeat CT. Dictated on workstation # [id number] Dict: 08/08/21 1200 Trans: 08/08/21 1208 BRYCE [id number] Interpreted by: RAKESH MARK MD Electronically signed by: Departure Impression Primary Impression: Ascites Qualified Codes: R18.8 - Other ascites Additional Impression: SBP (spontaneous bacterial peritonitis) Disposition: 09 ADMITTED INPATIENT Condition: Stable Departure-Patient Inst. Referrals: NO,LOCAL PHYSICIAN (PCP/Family) Primary Care Physician LUCIUS CASTRO MD Aug 08, 2021 11:56
[2021-08-08] MEDS ORDERED: LIDOCAINE/EPI 2% 1:100,00 (XYLOCAINE) 20 ML VIAL ONE (11:59)
--- NOTE | 2021-08-08 12:08 | Diagnostic Imaging Report ---
INDICATION: Shortness of breath. Comparison made with a prior study from 07/23/2021. Comparison is also made to CTA of the chest from 07/17/2021. Findings: There is a progressive region of airspace opacity demonstrated within the left lung base as well as interval progression in the left-sided effusion. There now appears to be a small right-sided effusion present as well. There is no pneumothorax. Heart size appears stable. Central pulmonary vascular congestion is noted. IMPRESSION: 1. Increasing bibasilar pleural effusions as well as increased prominence of the central pulmonary vascularity. There additionally is some progressive airspace opacification demonstrated at the left lung base. As this appears to have progressed, this may be a region of pneumonia but a mass is not excluded and this should be followed to resolution and ultimately reassessed with repeat CT. Dictated by: Dictated on workstation # [id number]
[2021-08-08 12:42] LABS: BASOPHILS % (AUTO) 0 % (0-10); EOSINOPHILS % (AUTO) 0 % (0-10); HEMATOCRIT 42 % (40-54); HEMOGLOBIN 13.4 g/dL (13.3-17.7); LYMPHOCYTES # (AUTO) 1.1 10^3/uL (1.0-4.0); LYMPHOCYTES % (AUTO) 12 % (12-44); MEAN CORPUSCULAR HEMOGLOBIN 28 pg (25-34); MEAN CORPUSCULAR HGB CONC 32 g/dL (32-36); MEAN CORPUSCULAR VOLUME 87 fL (80-99); MEAN PLATELET VOLUME 11.5 fL (9.0-12.2); MONOCYTES # (AUTO) 0.7 10^3/uL (0.0-1.0); MONOCYTES % (AUTO) 7 % (0-12); NEUTROPHILS # (AUTO) 7.8 10^3/uL (1.8-7.8); NEUTROPHILS % (AUTO) 80 % (42-75); PLATELET COUNT 377 10^3/uL (130-400); WHITE BLOOD COUNT 9.8 10^3/uL (4.3-11.0)
[2021-08-08] MEDS ORDERED: cefTRIAXone 1 GM PRE-MIX 50 ML IV ONE (12:45)
[2021-08-08 12:55] LABS: INR 1.1 (0.8-1.4); PROTHROMBIN TIME PATIENT 14.3 SEC (12.2-14.7)
[2021-08-08] MEDS ORDERED: morphine INJ 10 MG/ML 1ML (SYR OR VIAL) ONE (13:02)
[2021-08-08 13:03] LABS: ALBUMIN 3.5 GM/DL (3.2-4.5); BILIRUBIN,TOTAL 0.5 MG/DL (0.1-1.0); CALCIUM 8.9 MG/DL (8.5-10.1); CREATININE SERUM 1.04 MG/DL (0.60-1.30); POTASSIUM 4.2 MMOL/L (3.6-5.0); TOTAL PROTEIN 7.7 GM/DL (6.4-8.2)
[2021-08-08 13:39] LABS: BODY FLUID APPEARENCE MOD CLDY; BODY FLUID COLOR YELLOW; BODY FLUID RBC COUNT 1725 /uL; BODY FLUID SOURCE THORACEN; BODY FLUID WBC TOTAL COUNT 664 /uL; LYMPHOCYTES,BODY FLUID 98 %
[2021-08-08 13:58] LABS: ALBUMIN,BODY FLUID 2.4 G/DL; GLUCOSE,BODY FLUID 202 MG/DL; LDH,BODY FLUID 230 U/L; TOTAL PROTEIN,BODY FLUID 4.4 G/DL
[2021-08-08 15:50] VITALS: BP 97/62
[2021-08-08] MEDS ORDERED: polyethylene glycoL POWDER 17 GM (MIRALAX) PACK PO PRN (16:00)
[2021-08-08] MEDS ORDERED: MELATONIN 3 MG TABLET PO PRN (16:00)
[2021-08-08] MEDS ORDERED: ANTACID SUSP 30 ML UDC (MYLANTA) PO PRN (16:00)
[2021-08-08] MEDS ORDERED: ONDANSETRON 4 MG (ZOFRAN) ORAL DISSOLVE TAB PO PRN (16:00)
[2021-08-08] MEDS ORDERED: ACETAMINOPHEN 325 MG TABLET PO PRN (16:00)
[2021-08-08] MEDS ORDERED: diphenhydrAMINE 25 MG TAB (BENADRYL) PO PRN (16:00)
[2021-08-08] MEDS ORDERED: NICOTINE 14 MG (NICODERM) PATCH TD ONE (18:00)
[2021-08-08 19:00] VITALS: BP 97/63
[2021-08-08] MEDS ORDERED: inSUlin ASPART (NovoLOG) 1 UNIT/0.01 ML (CHARGE PER UNIT) SC SCH (20:00)
[2021-08-08] MEDS: inSUlin ASPART (NovoLOG) 1 UNIT/0.01 ML (CHARGE PER UNIT) SC SCH (22:02)
[2021-08-08] MEDS: morphine INJ 10 MG/ML 1ML (SYR OR VIAL) IVP PRN (23:01)
[2021-08-08 23:41] VITALS: BP 107/70
[2021-08-09 04:42] VITALS: BP 111/71
[2021-08-09] MEDS: inSUlin ASPART (NovoLOG) 1 UNIT/0.01 ML (CHARGE PER UNIT) SC SCH ×4 (05:30→21:20)
[2021-08-09 05:51] LABS: BASOPHILS % (AUTO) 1 % (0-10); EOSINOPHILS # (AUTO) 0.1 10^3/uL (0.0-0.3); EOSINOPHILS % (AUTO) 1 % (0-10); HEMATOCRIT 41 % (40-54); HEMOGLOBIN 12.9 g/dL (13.3-17.7); LYMPHOCYTES # (AUTO) 0.9 10^3/uL (1.0-4.0); LYMPHOCYTES % (AUTO) 12 % (12-44); MEAN CORPUSCULAR HEMOGLOBIN 27 pg (25-34); MEAN CORPUSCULAR HGB CONC 32 g/dL (32-36); MEAN CORPUSCULAR VOLUME 87 fL (80-99); MEAN PLATELET VOLUME 11.9 fL (9.0-12.2); MONOCYTES # (AUTO) 0.6 10^3/uL (0.0-1.0); MONOCYTES % (AUTO) 8 % (0-12); NEUTROPHILS # (AUTO) 5.7 10^3/uL (1.8-7.8); NEUTROPHILS % (AUTO) 78 % (42-75); PLATELET COUNT 302 10^3/uL (130-400); WHITE BLOOD COUNT 7.3 10^3/uL (4.3-11.0)
[2021-08-09 06:23] LABS: CALCIUM 8.5 MG/DL (8.5-10.1); CREATININE SERUM 0.82 MG/DL (0.60-1.30); POTASSIUM 4.4 MMOL/L (3.6-5.0)
[2021-08-09 08:00] VITALS: BP 113/71
[2021-08-09] MEDS: NICOTINE 14 MG (NICODERM) PATCH TD SCH (09:08)
[2021-08-09] MEDS: cefTRIAXone 1 GM PRE-MIX 50 ML IV SCH (09:08)
[2021-08-09] MEDS: morphine INJ 10 MG/ML 1ML (SYR OR VIAL) IVP PRN ×3 (11:31→16:08)
[2021-08-09 11:36] VITALS: BP 94/62
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
--- NOTE | 2021-08-09 15:10 | Progress Note-Post Operative ---
Post-Operative Progess Note Surgeon (s)/Accounting Professional (s) Surgeon MELVINA MAXWELL DO Accounting Professional: none Pre-Operative Diagnosis Ascites Post-Operative Diagnosis same pending path Procedure & Operative Findings Date of Procedure 08/09/21 Procedure Performed/Findings Paracentesis The patient was in his bed on the fourth floor. US was used to locate the lar gest area of fluid; also used again during procedure. The abdomen was then prepped and draped and timeout was performed. Local anesthetic was infiltrated and #11 blade scalpel was used to make a small skin incision. Did not get anything on the first attempt, had to go a little lower to get in and get fluid. [id number]-R-Tajqrhmv needle and catheter were then advanced until straw-colored fluid was withdrawn. The catheter was advanced and the needle was removed. A total of appx 3.5 L of straw-colored fluid was withdrawn. Once done draining, the catheter was removed and sterile bandage was applied. The patient tolerated procedure well without any complications. Anesthesia Type local lidocaine Estimated Blood Loss Estimated blood loss (mL): scant Specimens/Packing Specimens Removed 3.5 L of ascitic fluid MELVINA MAXWELL DO Aug 09, 2021 15:10
[2021-08-09 15:18] VITALS: BP 104/69
[2021-08-09 15:45] LABS: GLUCOSE,BODY FLUID 198 MG/DL; TOTAL PROTEIN,BODY FLUID 4.2 G/DL
[2021-08-09 15:54] LABS: BODY FLUID APPEARENCE MOD CLDY; BODY FLUID COLOR YELLOW; BODY FLUID RBC COUNT 4650 /uL; BODY FLUID WBC TOTAL COUNT 1350 /uL
[2021-08-09 16:05] LABS: BODY FLUID SOURCE PERITON; LYMPHOCYTES,BODY FLUID 96 %
[2021-08-09] MEDS: ONDANSETRON 4 MG/2 ML (SDV) Z0FRAN IV PRN (16:07)
[2021-08-09] MEDS ORDERED: NS 100 ML (IVPB) BAG IV ONE (16:45)
[2021-08-09] MEDS ORDERED: IOHEXOL 350 MG/ML 100 ML (OMNIPAQUE 350) VIAL IV ONE (16:45)
[2021-08-09] MEDS ORDERED: HOLD METFORMIN - RECEIVED CONTRAST 20 ML VIAL IV SCH (16:45)
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
--- NOTE | 2021-08-09 17:11 | Oncology Consultation ---
Visit Information Visit Information Date of Admission Aug 08, 2021 at 14:10 Attending Physician Phuong Harris MD Admitting Physician No,Local Physician Chief Complaint Large ascities. ?peritoneum carcinomatosis Interval History 61 year old man presented to new onset large ascites. He had paracentasis this afternoon about 3-4 liter removed. I have set up a f/u appointment for him to see me at the cancer center on 08-13-2021 as out-pt for discuss the cytology of the ascites and next steps of management. Pt can be discharged home from the med/onc point of view. I consulted the patient on: 08/09/21 17:07 Time Seen by Provider: 15:00 Review of Systems Constitutional: see HPI, weakness Health Status Allergies Coded Allergies: canola oil (Verified Allergy, Unknown, 07/17/21) Home Medications Furosemide (Furosemide) 20 Mg Tablet, 20 MG PO DAILY for 30 Days, #30 Ref 0 Prescribed by: PHUONG HARRIS on 08/10/21 1131 Ondansetron (Ondansetron Odt) 4 Mg Tab.rapdis, 4 MG PO Q6H PRN for NAUSEA/VOMITING for 7 Days, #20 Prescribed by: PHUONG HARRIS on 08/10/21 1131 Oxycodone HCl (Oxycodone HCl) 5 Mg Tablet, 5-10 MG PO Q4H PRN for PAIN MODERATE TO SEVERE for 7 Days, #30 MODERATE PAIN 5 MG SEVERE PAIN 10 MG Prescribed by: PHUONG HARRIS on 08/10/21 1132 Spironolactone (Spironolactone) 25 Mg Tablet, 50 MG PO DAILY for 30 Days, #30 Ref 0 Prescribed by: PHUONG HARRIS on 08/10/21 1131 NRC-Mipjxc-Ruslrv Hx Patient Social History Smoking Status: Current Everyday Smoker Type Used: Cigarettes Alcohol Use?: No Have you traveled recently?: No Family Medical History Significant Family History: Diabetes (denies in his parents), Hypertension (Denies in his parents) Physical Exam Vital Signs Vital Signs - First Documented 08/08/21 08/08/21 08/08/21 11:28 15:39 15:50 Temp 36.2 Pulse 104 Resp 22 B/P (MAP) 99/79 (86) Pulse Ox 91 O2 Delivery Room Air O2 Flow Rate 2.00 Capillary Refill : Less Than 3 Seconds Height, Weight, BMI Height: '" Weight: lbs. oz. kg; 23.13 BMI Method: General Appearance: Chronically ill HEENT: PERRL/EOMI Respiratory: No Accessory Muscle Use, No Respiratory Distress Gastrointestinal: Soft, Distended Data Review Labs Laboratory Tests 08/08/21 12:10: 08/08/21 12:32: Neutrophils (%) (Auto) 80H, Sodium Level 133L, Chloride Level 93L, Blood Urea Nitrogen 32H, Glucose Level 257H, Mean Blood Glucose 321H, Hemoglobin A1c 12.8H 08/08/21 20:49: Glucometer 365H 08/09/21 04:50: Glucometer 236H 08/09/21 05:24: Hemoglobin 12.9L, Neutrophils (%) (Auto) 78H, Lymphocytes # (Auto) 0.9L, Chloride Level 96L, Blood Urea Nitrogen 30H, Glucose Level 219H 08/09/21 14:00: 08/09/21 15:28: Glucometer 202H 08/09/21 20:22: Glucometer 230H 08/10/21 06:03: Glucometer 232H 08/10/21 10:30: Glucometer 305H 08/10/21 16:10: Glucometer 289H Impression & Plan Impression & Plan A/P 1. Large ascites, s/p paracentesis 3-4 liters removed, will f/u cytology and set up appointment for patient to see me at the cancer center 08/13/2021. 2. CT scan of chest showed lesion developed in the lung over 3 weeks unlikely cancer. 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 3. I have told patient and that we do NOT have the diagnosis of cancer at this point even though every sign suggested cancer. TERRIE RAMOS MD Aug 09, 2021 17:11
--- NOTE | 2021-08-09 18:31 | Diagnostic Imaging Report ---
INDICATION: Abdominal pain and ascites, recent paracentesis. TECHNIQUE: Multiple contiguous axial images were obtained through the abdomen and pelvis after administration of intravenous contrast. Auto Exposure Controls were utilized during the CT exam to meet ALARA standards for radiation dose reduction. All CT scans use one or more of the following dose optimizing techniques: automated exposure control, MA and/or KvP adjustment based on patient size and exam type or iterative reconstruction. Comparison made with 07/23/2021. The visualized portions of the lung bases demonstrate a large left pleural effusion and moderate to large right pleural effusion, significantly worsened compared to the previous study. There is passive atelectasis versus infiltrate in both lung bases. There is a minimal trace of free air in the peritoneal cavity. This can be explained by recent paracentesis. The liver shows diffuse inhomogeneous appearance compatible with cirrhosis, without focal lesion. Gallbladder is mildly distended. Spleen is not appreciably enlarged. The adrenals and pancreas and kidneys all appear normal except for a benign-appearing cyst in the left kidney. There is no retroperitoneal mass. There is a small amount of ascites present, status post recent paracentesis. The amount of ascites has decreased compared to 07/23/2021. There is some thickening of the peritoneal lining as noted previously. There is a large amount of stool throughout the colon compatible with severe constipation. There is moderate small bowel distention with scattered fluid filled loops of small bowel. There is no pelvic lymphadenopathy. IMPRESSION: Compared to the prior study of 07/23/2021, ascites has nearly resolved post recent paracentesis done 1 hour prior to the study. There is a trace of free air in the peritoneal cavity can be explained by the recent paracentesis. There is significant worsening of bilateral pleural effusions. There are cirrhotic changes in the liver. There is a large amount of stool throughout the colon with some scattered fluid levels in the small bowel which may be due to ileus or enteritis. Dictated by: Dictated on workstation # [id number]
[2021-08-09 19:23] VITALS: BP 112/76
[2021-08-09] MEDS: ACETAMINOPHEN 500 MG TAB (TYLENOL) PO SCH (20:09)
[2021-08-09] MEDS: GABAPENTIN 100 MG (NEURONTIN) CAP PO SCH (20:09)
[2021-08-10 00:01] VITALS: BP 91/65
[2021-08-10] MEDS: morphine INJ 4 MG/ML 1 ML (VIAL/SYRINGE) IVP PRN ×2 (00:51→11:31)
[2021-08-10 03:36] VITALS: BP 110/75
[2021-08-10] MEDS: inSUlin ASPART (NovoLOG) 1 UNIT/0.01 ML (CHARGE PER UNIT) SC SCH ×4 (06:04→21:41)
--- NOTE | 2021-08-10 07:50 | Progress Note - Surgery ---
[facility] 08/10/21 0750: Subjective Date Seen by a Provider: Aug 10, 2021 Time Seen by a Provider: 07:30 Subjective/Events-last exam States that his abdominal pain and shortness of breath improved after the paracentesis yesterday Patient experienced an episode of abdominal pain around 1600 yesterday (08/09) and received a CT scan Patient also reports an episode of nausea and vomiting after receiving medica tion yesterday (08/09) around 2200 Continue to remain afebrile with Stable vitals. but requiring 3L of O2 Review of Systems General: Chills, Night Sweats, Other Pulmonary: Dyspnea; No Cough Cardiovascular: No: Chest Pain, Palpitations Gastrointestinal: Nausea, Vomiting, Abdominal Pain Focused Exam Lactate Level 08/08/21 12:32: Lactic Acid Level 1.84 Objective Exam Vital Signs Date Time Temp Pulse Resp B/P (MAP) Pulse Ox O2 Delivery O2 Flow Rate FiO2 08/10/21 03:36 36.4 86 20 110/75 (87) 95 Nasal Cannula 3.00 08/10/21 00:01 36.7 90 20 91/65 (74) 92 Nasal Cannula 3.00 08/09/21 23:32 Nasal Cannula 2.50 08/09/21 20:09 95 Nasal Cannula 2.00 08/09/21 19:23 36.6 87 20 112/76 (88) 92 Nasal Cannula 2.50 08/09/21 15:18 36.4 83 20 104/69 (81) 91 Nasal Cannula 2.50 08/09/21 11:37 36.8 08/09/21 11:36 80 94/62 (73) 93 Nasal Cannula 3.00 08/09/21 08:20 95 Nasal Cannula 2.00 08/09/21 08:00 36.4 90 18 113/71 (85) 91 Nasal Cannula 3.00 I & O 08/10/21 07:00 Intake Total 1100 ml Output Total 250 ml Balance 850 ml Capillary Refill : Less Than 3 Seconds General Appearance: No Apparent Distress, Cachetic HEENT: PERRL/EOMI; No Scleral Icterus (L), No Scleral Icterus (R) Neck: Normal Inspection, Supple Respiratory: Lungs Clear, No Accessory Muscle Use, No Respiratory Distress Cardiovascular: Regular Rate, Rhythm, No Murmur, Normal Peripheral Pulses (2+ radial pulses bilaterally) Peripheral Pulses: 2+ Radial Pulses (R), 2+ Radial Pulses (L) Gastrointestinal: distended (with improvement in fluid wave), hernia (Umbilical), hepatomegaly Extremity: Normal Inspection, No Pedal Edema Neurologic/Psychiatric: Alert, No Motor/Sensory Deficits, Other (delusional thoughts) Skin: Normal Color, Warm/Dry Results Lab Laboratory Tests 08/09/21 14:00: Body Fluid Source PERITON, Body Fluid Color YELLOW, Body Fluid Appearance MOD CLDY, Body Fluid WBC 1350, Body Fluid RBC 4650, Body Fluid Polynuclear WBCs 2, Body Fluid Mononuclear WBCs 2, Body Fluid Lymphocytes 96, Body Fluid Eosinophils , Body Fluid Other Cells , Body Fluid Glucose 198, Body Fluid Total Protein 4.2 08/09/21 15:28: Glucometer 202H 08/10/21 06:03: Glucometer 232H Microbiology 08/08/21 Blood Culture - Preliminary, Resulted No growth 08/08/21 Gram Stain, Resulted Pending 08/08/21 Body Fluid Culture - Preliminary, Resulted No growth Radiology Date of Exam:08/09/21 CT ABDOMEN/PELVIS W INDICATION: Abdominal pain and ascites, recent paracentesis. TECHNIQUE: Multiple contiguous axial images were obtained through the abdomen and pelvis after administration of intravenous contrast. Auto Exposure Controls were utilized during the CT exam to meet ALARA standards for radiation dose reduction. All CT scans use one or more of the following dose optimizing techniques: automated exposure control, MA and/or KvP adjustment based on patient size and exam type or iterative reconstruction. Comparison made with 07/23/2021. The visualized portions of the lung bases demonstrate a large left pleural effusion and moderate to large right pleural effusion, significantly worsened compared to the previous study. There is passive atelectasis versus infiltrate in both lung bases. There is a minimal trace of free air in the peritoneal cavity. This can be explained by recent paracentesis. The liver shows diffuse inhomogeneous appearance compatible with cirrhosis, without focal lesion. Gallbladder is mildly distended. Spleen is not appreciably enlarged. The adrenals and pancreas and kidneys all appear normal except for a benign-appearing cyst in the left kidney. There is no retroperitoneal mass. There is a small amount of ascites present, status post recent paracentesis. The amount of ascites has decreased compared to 07/23/2021. There is some thickening of the peritoneal lining as noted previously. There is a large amount of stool throughout the colon compatible with severe constipation. There is moderate small bowel distention with scattered fluid filled loops of small bowel. There is no pelvic lymphadenopathy. IMPRESSION: Compared to the prior study of 07/23/2021, ascites has nearly resolved post recent paracentesis done 1 hour prior to the study. There is a trace of free air in the peritoneal cavity can be explained by the recent paracentesis. There is significant worsening of bilateral pleural effusions. There are cirrhotic changes in the liver. There is a large amount of stool throughout the colon with some scattered fluid levels in the small bowel which may be due to ileus or enteritis. Dictated by: Dictated on workstation # [id number] Dict: 08/09/21 1801 Trans: 08/09/21 1840 PRAKASH [id number] Interpreted by: YOLANDA HUBBARD MD Electronically signed by: YOLANDA HUBBARD MD 08/09/21 1840 Procedures Pre-Operative Diagnosis Ascites Post-Operative Diagnosis same pending path Procedure & Operative Findings Date of Procedure 08/09/21 Procedure Performed/Findings Paracentesis The patient was in his bed on the fourth floor. US was used to locate the largest area of fluid; also used again during procedure. The abdomen was then prepped and draped and timeout was performed. Local anesthetic was infiltrated and #11 blade scalpel was used to make a small skin incision. Did not get anything on the first attempt, had to go a little lower to get in and get fluid. [id number] needle and catheter were then advanced until straw-colored fluid was withdrawn. The catheter was advanced and the needle was removed. A total of appx 3.5 L of straw-colored fluid was withdrawn. Once done draining, the catheter was removed and sterile bandage was applied. The patient tolerated procedure well without any complications. Anesthesia Type local lidocaine Estimated Blood Loss Estimated blood loss (mL): scant Specimens/Packing Specimens Removed 3.5 L of ascitic fluid MELVINA CASTILLO DO Aug 09, 2021 15:10 <Created by MELVINA CASTILLO DO> <Electronically signed by MELVINA CASTILLO DO> 08/09/21 1510 Assessment/Plan Assessment/Plan Assessment/Plan Ascites causing moderate distension and symptoms such as nausea and vomiting - therapeutic paracentesis - approximately 3.5 L of fluid removed - Recommend Outpatient follow up as per chart review patient has had atleast 3 paracentesis during July. Paracentesis Fluid analysis Color Appearance WBC RBC Polynuclear mononuclear Lymphocytes Glucose Total Protein Yellow Cloudy 1350 4650 2 2 96 198 4.2 MELVINA CASTILLO DO 08/10/21 1048: Subjective Time Seen by a Provider: 09:04 Subjective/Events-last exam Pt seen and examined, states he still has some abdominal pain and is having nausea. Review of Systems General: Chills, Night Sweats Pulmonary: Dyspnea; No Cough Cardiovascular: No: Chest Pain, Palpitations Gastrointestinal: Nausea, Vomiting, Abdominal Pain Objective Exam General Appearance: No Apparent Distress, Cachetic (with distended abd) HEENT: PERRL/EOMI Respiratory: Lungs Clear, No Accessory Muscle Use, No Respiratory Distress Cardiovascular: Regular Rate, Rhythm, No Murmur Gastrointestinal: soft, distended (with improvement in fluid wave), hernia (Umbilical), hepatomegaly Neurologic/Psychiatric: Other (delusional thoughts) Assessment/Plan Assessment/Plan Assessment/Plan Ascites causing moderate distension and symptoms such as nausea and vomiting - therapeutic paracentesis - approximately 3.5 L of fluid removed - Recommend Outpatient follow up as per chart review patient has had atleast 3 paracentesis during July. -AAS today Supervisory-Addendum Brief Verification & Attestation Participated in pt care: history, MDM, physical Personally performed: exam, history, MDM, supervision of care Care discussed with: Medical Student Procedures: n/a Verification and Attestation of Medical Student E/M Service A medical student performed and documented this service. I then reviewed and verified all information documented by the medical student and made modifications to such information, when appropriate. I personally performed a physical exam, medical decision making and then discussed any differences between the notes and made revisions as necessary to create one note. Melvina Castillo , 08/10/21 , 10:48 KYLEE RAMOS [facility] Aug 10, 2021 07:50 MELVINA CASTILLO DO Aug 10, 2021 10:48
[2021-08-10 08:00] VITALS: BP 91/77
[2021-08-10] MEDS: GABAPENTIN 100 MG (NEURONTIN) CAP PO SCH ×2 (08:53→20:16)
[2021-08-10] MEDS: cefTRIAXone 1 GM PRE-MIX 50 ML IV SCH (08:53)
[2021-08-10] MEDS: NICOTINE 14 MG (NICODERM) PATCH TD SCH (08:54)
[2021-08-10] MEDS: ACETAMINOPHEN 500 MG TAB (TYLENOL) PO SCH ×3 (08:54→20:16)
[2021-08-10] MEDS: SPIRONOLACTONE 25 MG (ALDACTONE) TAB PO SCH (08:54)
[2021-08-10] MEDS: FUROSEMIDE 20 MG (LASIX) TAB PO SCH (08:55)
[2021-08-10] MEDS ORDERED: morphine INJ 10 MG/ML 1ML (SYR OR VIAL) IVP NR (11:23)
[2021-08-10] MEDS ORDERED: morphine INJ 4 MG/ML 1 ML (VIAL/SYRINGE) ONE (11:27)
[2021-08-10] MEDS ORDERED: FURO20TA4 PO (11:31)
[2021-08-10] MEDS ORDERED: OXYC5TAB PO (11:31)
[2021-08-10] MEDS ORDERED: ONDA4TAB11 PO (11:31)
[2021-08-10] MEDS ORDERED: SPIR25TA5 PO (11:31)
[2021-08-10 12:00] VITALS: BP 95/66
--- NOTE | 2021-08-10 12:43 | Diagnostic Imaging Report ---
INDICATION: Abdominal distention. COMPARISON: None. FINDINGS: Acute abdominal series demonstrates bilateral pleural effusions with dependent atelectasis. There is no free air under the diaphragm. There is moderate constipation without obstruction or ileus. There is no free air. IMPRESSION: 1. Constipation without bowel obstruction or free air. 2. Bilateral pleural effusions with dependent atelectasis. Dictated by: Dictated on workstation # [id number]
[2021-08-10 16:00] VITALS: BP 99/69
[2021-08-10] MEDS: ONDANSETRON 4 MG/2 ML (SDV) Z0FRAN IV PRN (16:11)
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
[2021-08-10] MEDS: ENOXAPARIN 40 MG/0.4 ML (LOVENOX) SYR SC SCH (17:00)
[2021-08-10 19:43] VITALS: BP 100/67
[2021-08-11] VITALS: BP 111/74
[2021-08-11] MEDS: morphine INJ 4 MG/ML 1 ML (VIAL/SYRINGE) IV PRN ×2 (02:25→21:21)
[2021-08-11 04:00] VITALS: BP 101/66
[2021-08-11] MEDS: ONDANSETRON 4 MG/2 ML (SDV) Z0FRAN IV PRN ×2 (04:16→20:42)
[2021-08-11 06:02] LABS: BASOPHILS % (AUTO) 0 % (0-10); EOSINOPHILS # (AUTO) 0.1 10^3/uL (0.0-0.3); EOSINOPHILS % (AUTO) 2 % (0-10); HEMATOCRIT 42 % (40-54); HEMOGLOBIN 13.7 g/dL (13.3-17.7); LYMPHOCYTES # (AUTO) 0.8 10^3/uL (1.0-4.0); LYMPHOCYTES % (AUTO) 9 % (12-44); MEAN CORPUSCULAR HEMOGLOBIN 28 pg (25-34); MEAN CORPUSCULAR HGB CONC 33 g/dL (32-36); MEAN CORPUSCULAR VOLUME 86 fL (80-99); MEAN PLATELET VOLUME 11.7 fL (9.0-12.2); MONOCYTES # (AUTO) 0.7 10^3/uL (0.0-1.0); MONOCYTES % (AUTO) 8 % (0-12); NEUTROPHILS # (AUTO) 7.1 10^3/uL (1.8-7.8); NEUTROPHILS % (AUTO) 80 % (42-75); PLATELET COUNT 325 10^3/uL (130-400); WHITE BLOOD COUNT 8.9 10^3/uL (4.3-11.0)
[2021-08-11 06:17] LABS: ALBUMIN 3.1 GM/DL (3.2-4.5); POTASSIUM 4.8 MMOL/L (3.6-5.0)
[2021-08-11 06:18] LABS: CALCIUM 8.7 MG/DL (8.5-10.1)
[2021-08-11 06:20] LABS: TOTAL PROTEIN 6.9 GM/DL (6.4-8.2)
[2021-08-11 06:21] LABS: BILIRUBIN,TOTAL 0.3 MG/DL (0.1-1.0)
[2021-08-11 06:23] LABS: CREATININE SERUM 1.15 MG/DL (0.60-1.30)
[2021-08-11] MEDS: inSUlin ASPART (NovoLOG) 1 UNIT/0.01 ML (CHARGE PER UNIT) SC SCH ×4 (06:35→20:11)
--- NOTE | 2021-08-11 08:07 | Progress Note - Surgery ---
[facility] 08/11/21 0807: Subjective Date Seen by a Provider: Aug 11, 2021 Time Seen by a Provider: 08:00 Subjective/Events-last exam No acute events overnight, remains afebrile Patient continues to have nausea Has not had a bowel movement but is passing gas. Still planning on performing a flex sig today and patient appears agreeable Oxygen was increased to 4L Review of Systems General: Chills; No Other (fevers) Pulmonary: Dyspnea (Requirng 4L); No Cough Cardiovascular: No: Chest Pain, Palpitations Gastrointestinal: Nausea, Abdominal Pain Focused Exam Lactate Level 08/08/21 12:32: Lactic Acid Level 1.84 Objective Exam Vital Signs Date Time Temp Pulse Resp B/P (MAP) Pulse Ox O2 Delivery O2 Flow Rate FiO2 08/11/21 04:00 37.0 86 18 101/66 (78) 96 Nasal Cannula 08/11/21 00:00 36.5 84 22 111/74 (86) 94 Nasal Cannula 4.00 08/10/21 20:16 Nasal Cannula 2.00 08/10/21 19:43 36.6 94 22 100/67 (78) 92 Nasal Cannula 2.50 08/10/21 16:00 36.7 101 18 99/69 (79) 96 Nasal Cannula 3.00 08/10/21 12:00 36.6 103 18 95/66 (76) 97 Nasal Cannula 3.00 I & O 08/11/21 07:00 Intake Total 644 ml Balance 644 ml Capillary Refill : Less Than 3 Seconds General Appearance: No Apparent Distress, Chronically ill, Cachetic HEENT: PERRL/EOMI; No Scleral Icterus (L), No Scleral Icterus (R) Neck: Normal Inspection, Supple Respiratory: No Respiratory Distress, Decreased Breath Sounds Cardiovascular: Regular Rate, Rhythm, No Murmur Peripheral Pulses: 2+ Radial Pulses (R), 2+ Radial Pulses (L) Gastrointestinal: soft, distended (with improvement in fluid wave), hernia (Umbilical), hepatomegaly Extremity: Non Tender, No Calf Tenderness Neurologic/Psychiatric: Alert, No Motor/Sensory Deficits Skin: Normal Color, Warm/Dry Lymphatic: No Adenopathy (supraclavicular or posterior cervical) Results Lab Laboratory Tests 08/10/21 10:30: Glucometer 305H 08/10/21 16:10: Glucometer 289H 08/10/21 20:58: Glucometer 299H 08/11/21 05:31: Glucometer 243H 08/11/21 05:35: White Blood Count 8.9, Red Blood Count 4.91, Hemoglobin 13.7, Hematocrit 42, Mean Corpuscular Volume 86, Mean Corpuscular Hemoglobin 28, Mean Corpuscular Hemoglobin Concent 33, Red Cell Distribution Width 13.4, Platelet Count 325, Mean Platelet Volume 11.7, Immature Granulocyte % (Auto) 1, Neutrophils (%) (Auto) 80H, Lymphocytes (%) (Auto) 9L, Monocytes (%) (Auto) 8, Eosinophils (%) (Auto) 2, Basophils (%) (Auto) 0, Neutrophils # (Auto) 7.1, Lymphocytes # (Auto) 0.8L, Monocytes # (Auto) 0.7, Eosinophils # (Auto) 0.1, Basophils # (Auto) 0.0, Immature Granulocyte # (Auto) 0.1, Sodium Level 133L, Potassium Level 4.8, Chloride Level 94L, Carbon Dioxide Level 26, Anion Gap 13, Blood Urea Nitrogen 42H, Creatinine 1.15, Estimat Glomerular Filtration Rate 72, BUN/Creatinine Ratio 37, Glucose Level 238H, Calcium Level 8.7, Corrected Calcium 9.4, Total Bilirubin 0.3, Aspartate Amino Transf (AST/SGOT) 11, Alanine Aminotransferase (ALT/SGPT) 11, Alkaline Phosphatase 61, Total Protein 6.9, Albumin 3.1L Microbiology 08/09/21 Gram Stain - Final, Resulted 08/09/21 Body Fluid Culture - Preliminary, Resulted No growth 08/08/21 Blood Culture - Preliminary, Resulted No growth Radiology Date of Exam:08/10/21 ACUTE ABD SERIES INDICATION: Abdominal distention. COMPARISON: None. FINDINGS: Acute abdominal series demonstrates bilateral pleural effusions with dependent atelectasis. There is no free air under the diaphragm. There is moderate constipation without obstruction or ileus. There is no free air. IMPRESSION: 1. Constipation without bowel obstruction or free air. 2. Bilateral pleural effusions with dependent atelectasis. Dictated by: Dictated on workstation # [id number] Dict: 08/10/21 1239 Trans: 08/10/21 1325 [id number] Interpreted by: GRAHAM CULVER Electronically signed by: GRAHAM CULVER 08/10/21 1325 Assessment/Plan Assessment/Plan Assessment/Plan Ascites causing moderate distension and symptoms such as nausea and vomiting - therapeutic paracentesis with 3.5 L of fluid removed - Recommend Outpatient follow up as per chart review patient has had atleast 3 paracentesis during July. -Plan flex sig today Constipation without bowel obstruction or free air - Plan Flex sig today Bilateral pleural effusions with dependent atelectasis revealed on AAS - possible thoracentesis if shortness of breath continues to worsen. MELVINA CASTILLO DO 08/11/21 1554: Subjective Time Seen by a Provider: 15:40 Subjective/Events-last exam Pt seen and examined, does not appear to be in distress. Complains of abd pain and wants to eat. Review of Systems General: Chills Pulmonary: Dyspnea (Requirng 4L); No Cough Cardiovascular: No: Chest Pain, Palpitations Gastrointestinal: Nausea, Abdominal Pain Objective Exam General Appearance: Chronically ill HEENT: PERRL/EOMI Respiratory: No Respiratory Distress, Decreased Breath Sounds Cardiovascular: Regular Rate, Rhythm, No JVD Gastrointestinal: soft, distended (with improvement in fluid wave), hernia (Umbilical), hepatomegaly Neurologic/Psychiatric: Alert, No Motor/Sensory Deficits Skin: Normal Color, Warm/Dry Assessment/Plan Assessment/Plan Assessment/Plan Ascites causing moderate distension and symptoms such as nausea and vomiting - therapeutic paracentesis with 3.5 L of fluid removed - Recommend Outpatient follow up as per chart review patient has had atleast 3 paracentesis during July. -Plan flex sig tomorrow -need to rule colonic mass and possible omental caking as causes of abdominal pain Constipation without bowel obstruction or free air Bilateral pleural effusions with dependent atelectasis revealed on AAS - possible thoracentesis if shortness of breath continues to worsen. Supervisory-Addendum Brief Verification & Attestation Participated in pt care: history, MDM, physical Personally performed: exam, history, MDM, supervision of care Care discussed with: Medical Student Procedures: n/a Verification and Attestation of Medical Student E/M Service A medical student performed and documented this service. I then reviewed and verified all information documented by the medical student and made modifications to such information, when appropriate. I personally performed a physical exam, medical decision making and then discussed any differences between the notes and made revisions as necessary to create one note. Melvina Castillo , 08/11/21 , 15:59 KYLEE RAMOS Aug 11, 2021 08:07 MELVINA CASTILLO DO Aug 11, 2021 15:54
[2021-08-11 08:44] VITALS: BP 108/75
[2021-08-11] MEDS: ACETAMINOPHEN 500 MG TAB (TYLENOL) PO SCH ×3 (08:54→22:07)
[2021-08-11] MEDS: cefTRIAXone 1 GM PRE-MIX 50 ML IV SCH (08:54)
[2021-08-11] MEDS: GABAPENTIN 100 MG (NEURONTIN) CAP PO SCH ×2 (08:55→22:07)
[2021-08-11] MEDS: FUROSEMIDE 20 MG (LASIX) TAB PO SCH (08:55)
[2021-08-11] MEDS: NICOTINE 14 MG (NICODERM) PATCH TD SCH (08:55)
[2021-08-11] MEDS: SPIRONOLACTONE 25 MG (ALDACTONE) TAB PO SCH (08:55)
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
[2021-08-11 13:31] VITALS: BP 107/73
[2021-08-11 15:59] VITALS: BP 109/72
[2021-08-11] MEDS: ENOXAPARIN 40 MG/0.4 ML (LOVENOX) SYR SC SCH (16:22)
[2021-08-11 20:00] VITALS: BP 133/77
[2021-08-12] VITALS (8 sets, daily range): BP systolic 88–118; BP diastolic 51–81
[2021-08-12] MEDS: morphine INJ 4 MG/ML 1 ML (VIAL/SYRINGE) IV PRN ×6 (01:45→20:33)
[2021-08-12] MEDS: inSUlin ASPART (NovoLOG) 1 UNIT/0.01 ML (CHARGE PER UNIT) SC SCH ×4 (06:34→20:39)
--- NOTE | 2021-08-12 08:34 | Progress Note - Surgery ---
[facility] 08/12/21 0834: Subjective Date Seen by a Provider: Aug 12, 2021 Time Seen by a Provider: 08:30 Subjective/Events-last exam Patient is having little to no improvement in symptoms Continues to have nausea, vomiting, and constipation Also states that he believes the fluid in his belly has increased Continues to have fevers and chills Was not using oxygen during encounter. Stated the oxygen was causing irritation Review of Systems General: Chills, Other (fevers) Pulmonary: No Dyspnea, No Cough Cardiovascular: No: Chest Pain, Palpitations Gastrointestinal: Nausea, Vomiting, Abdominal Pain Objective Exam Vital Signs Date Time Temp Pulse Resp B/P (MAP) Pulse Ox O2 Delivery O2 Flow Rate FiO2 08/12/21 04:00 36.0 90 19 115/81 (92) 93 OxyMask 3.00 08/12/21 00:00 36.4 89 17 107/76 (86) 94 OxyMask 3.00 08/11/21 20:10 OxyMask 3.00 08/11/21 20:00 37.0 92 18 133/77 (95) 92 Nasal Cannula 3.00 08/11/21 15:59 37.0 89 18 109/72 (84) 90 Nasal Cannula 3.00 08/11/21 13:31 37.0 81 18 107/73 (84) 96 Nasal Cannula 4.00 08/11/21 11:08 Nasal Cannula 3.00 08/11/21 09:00 Nasal Cannula 4.00 08/11/21 08:44 36.1 87 18 108/75 (86) 94 Nasal Cannula 4.00 I & O 08/12/21 07:00 Intake Total 240 ml Balance 240 ml Capillary Refill : Less Than 3 Seconds General Appearance: Chronically ill, Cachetic HEENT: PERRL/EOMI, Pharynx Normal; No Scleral Icterus (L), No Scleral Icterus (R) Neck: Normal Inspection, Supple Respiratory: No Accessory Muscle Use, No Respiratory Distress, Decreased Breath Sounds Cardiovascular: Regular Rate, Rhythm, No JVD Peripheral Pulses: 2+ Radial Pulses (R), 2+ Radial Pulses (L) Gastrointestinal: soft, distended, hernia (Umbilical), hepatomegaly Extremity: Normal Inspection, No Pedal Edema Neurologic/Psychiatric: Alert, Oriented x3 Lymphatic: No Adenopathy (supraclavicular or posterior cervical) Results Lab Laboratory Tests 08/11/21 11:39: Glucometer 218H 08/11/21 15:32: Glucometer 188H 08/11/21 20:07: Glucometer 299H 08/12/21 06:17: Glucometer 240H Microbiology 08/09/21 Gram Stain - Final, Resulted 08/09/21 Body Fluid Culture - Preliminary, Resulted No growth 08/08/21 Blood Culture - Preliminary, Resulted No growth Assessment/Plan Assessment/Plan Assessment/Plan Ascites causing moderate distension and symptoms such as nausea and vomiting - therapeutic paracentesis with 3.5 L of fluid removed - Recommend Outpatient follow up as per chart review patient has had atleast 3 paracentesis during July. -Plan flex sig today -need to rule colonic mass and possible omental caking as causes of abdominal pain Constipation without bowel obstruction or free air Bilateral pleural effusions with dependent atelectasis revealed on AAS - possible thoracentesis if shortness of breath continues to worsen. ZACK CASTILLO DO 08/12/21 1338: Subjective Time Seen by a Provider: 11:57 Subjective/Events-last exam Pt seen and examined, still complaing of abdominal pain and distention. States he is ready for procedure and had no questions. Review of Systems General: Chills, Fatigue Pulmonary: No Dyspnea, No Cough Cardiovascular: No: Chest Pain, Palpitations Gastrointestinal: Nausea, Vomiting, Abdominal Pain Objective Exam General Appearance: Chronically ill, Cachetic Respiratory: No Accessory Muscle Use, No Respiratory Distress, Decreased Breath Sounds (bilateral bases) Cardiovascular: Regular Rate, Rhythm, No JVD Gastrointestinal: soft, distended, hernia (Umbilical), hepatomegaly Extremity: No Pedal Edema Assessment/Plan Assessment/Plan Assessment/Plan Ascites causing moderate distension and symptoms such as nausea and vomiting - S/P therapeutic paracentesis with 3.5 L of fluid removed ??Colon mass seen on CT with possible omental caking -Plan flex sig today -need to rule Colon CA Constipation without bowel obstruction or free air Bilateral pleural effusions with dependent atelectasis revealed on AAS - possible thoracentesis if shortness of breath continues to worsen. Supervisory-Addendum Brief Verification & Attestation Participated in pt care: history, MDM, physical Personally performed: exam, history, MDM, supervision of care Care discussed with: Medical Student Procedures: n/a Verification and Attestation of Medical Student E/M Service A medical student performed and documented this service. I then reviewed and verified all information documented by the medical student and made modifications to such information, when appropriate. I personally performed a physical exam, medical decision making and then discussed any differences between the notes and made revisions as necessary to create one note. Zack Castillo , 08/12/21 , 13:38 KYLEE RAMOS [facility] Aug 12, 2021 08:34 ZACK CASTILLO DO Aug 12, 2021 13:38
[2021-08-12] MEDS: cefTRIAXone 1 GM PRE-MIX 50 ML IV SCH (09:51)
[2021-08-12] MEDS: ONDANSETRON 4 MG/2 ML (SDV) Z0FRAN IV PRN ×2 (09:51→20:40)
[2021-08-12] MEDS: ACETAMINOPHEN 500 MG TAB (TYLENOL) PO SCH ×3 (10:10→20:39)
[2021-08-12] MEDS: FUROSEMIDE 20 MG (LASIX) TAB PO SCH (10:10)
[2021-08-12] MEDS: NICOTINE 14 MG (NICODERM) PATCH TD SCH (10:10)
[2021-08-12] MEDS: SPIRONOLACTONE 25 MG (ALDACTONE) TAB PO SCH (10:10)
[2021-08-12] MEDS: GABAPENTIN 100 MG (NEURONTIN) CAP PO SCH ×2 (10:10→20:39)
[2021-08-12] MEDS ORDERED: LACTATED RINGERS 1,000 ML IV ONE (12:00)
[2021-08-12] MEDS ORDERED: proPOfol 200 MG/20 ML (DIPRIVAN) VIAL IV ONE (12:11)
[2021-08-12] MEDS ORDERED: PHENYLEPHRINE 100 MCG/ML 10 ML (ANESTHESIA) SYR ONE (12:25)
--- NOTE | 2021-08-12 12:57 | Progress Note ---
Progress Note Assessment/Plan Date Seen by Provider: Aug 12, 2021 Time Seen by Provider: 12:57 Events since last exam Pt just got back from flex sigmoid scope and felt very sleepy but able to have brief conversation. He feels the ascites coming back and he has pain in the abdomen which has not improved. Reportedly, there was no obvious lesions noticed in flex sigmoid scope. Cytology from last paracentesis was negative for malignancy. Discussed with Dr Yu radiologist about other possible site for biopsy but very promising. Our final decision was to have lap-explore tomorrow. Please biopsy any suspicious lesions at the omentume and liver. I will cancel his appointment at cancer center tomorrow. I will f/u for the path report and set up appointment to see the patient accordingly. Assessment/Plan A/P 1. Large ascites, recurrent, s/p paracentesis 3.5 liters removed, cytology negative for malignancy. He had negative cytology from the last paracentesis 07/17/2020. 2. CT scan of chest showed lesion developed in the lung over 3 weeks unlikely cancer. 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 3. Laparoscopy tomorrow for the diagnosis. I will f/u. 4. In the meantime, check tumor markers CEA, PSA. Vitals Last set of Vitals Signs Vital Signs Date Time Temp Pulse Resp B/P (MAP) Pulse Ox O2 Delivery O2 Flow Rate FiO2 08/12/21 12:35 83 16 89 OxyMask 08/12/21 12:12 35.9 102/70 (81) 08/12/21 04:00 3.00 I&O I&O Intake and Output 08/12/21 00:00 Intake Total 240 ml Balance 240 ml Intake Oral 240 ml # Voids 1 # [place] 3 Labs Laboratory Tests 08/11/21 15:32: Glucometer 188H 08/11/21 20:07: Glucometer 299H 08/12/21 06:17: Glucometer 240H 08/12/21 11:33: Glucometer 224H Microbiology 08/09/21 Gram Stain - Final, Complete 08/09/21 Body Fluid Culture - Final, Complete No growth 08/08/21 Blood Culture - Preliminary, Resulted No growth TERRIE RAMOS MD Aug 12, 2021 12:57
--- NOTE | 2021-08-12 13:34 | Progress Note-Post Operative ---
Post-Operative Progess Note Surgeon (s)/Resourcing Consultant (s) Surgeon MELVINA MAXWELL DO Resourcing Consultant: none Pre-Operative Diagnosis Abd pain, ??colon mass Post-Operative Diagnosis Fecal impaction/Constipation Colon polyp int hemorrhoids Procedure & Operative Findings Date of Procedure 08/12/21 Procedure Performed/Findings Flex Sig with snare polypectomy PROCEDURE NOTE: After informed consent was obtained, the patient was brought to the endoscopy suite, placed in bed in left lateral decubitus position. He was administered IV sedation by the NURSE ANESTHESIA PROGRAM DIRECTOR who then monitored his vitals the entire time, heart rate, blood pressure and pulse ox and the scope was inserted. Immediately upon entering encountered large fecal balls; pictures taken. CT had suggestion of Sigmoid mass and so pushed past the stool and actually able to get to the splenic flexure. May have gotten just past this but ran into complete blockage of large fecal balls. At this point slowly withdrew the scope, insufflating to look at the mera, down the descending colon down and through the sigmoid did not see any mass or narrowing. Did see a polyp and elected to do a snare polypectomy to completely remove it. I also saw what almost looked like sloughed mucosa, which I tried to suction up to send to pathology. Continued down into the rectal vault and found more fecal balls and noted some internal hemorrhoids. The patient tolerated the procedure. He was recovered in endoscopy suite. Anesthesia Type IV sedation by NURSE ANESTHESIA PROGRAM DIRECTOR Estimated Blood Loss Estimated blood loss (mL): scant Specimens/Packing Specimens Removed Sigmoid polyp ?? tissue MELVINA MAXWELL DO Aug 12, 2021 13:34
--- NOTE | 2021-08-12 14:18 | Anesthesia-General Post-Op ---
MAC Patient Condition Mental Status/LOC: Same as Preop Cardiovascular: Satisfactory Nausea/Vomiting: Absent Respiratory: Satisfactory Pain: Controlled Complications: Absent Post Op Complications Complications None Follow Up Care/Instructions Patient Instructions None needed. Anesthesiology Discharge Order Discharge Order Patient is doing well, no complaints, stable vital signs, no apparent adverse anesthesia problems. No complications reported per nursing. KYLEE SEAMAN CRNA Aug 12, 2021 14:18
[2021-08-12] MEDS ORDERED: MILK OF MAGNESIA 400 MG/5 ML 30 ML UDC PO PRN (16:45)
[2021-08-12] MEDS ORDERED: MILK OF MAGNESIA 400 MG/5 ML 30 ML UDC PO NR (16:45)
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
[2021-08-12] MEDS: ENOXAPARIN 40 MG/0.4 ML (LOVENOX) SYR SC SCH (17:13)
[2021-08-12] MEDS: polyethylene glycoL POWDER 17 GM (MIRALAX) PACK PO SCH ×2 (17:20→20:32)
[2021-08-12] MEDS: SENNA W/DOCUSATE (SENOKOT S) TABLET PO SCH (20:39)
[2021-08-12] MEDS: DOCUSATE SODIUM 100 MG (COLACE) CAP PO SCH (20:39)
[2021-08-13] VITALS (12 sets, daily range): BP systolic 90–129; BP diastolic 59–93
[2021-08-13] MEDS: morphine INJ 4 MG/ML 1 ML (VIAL/SYRINGE) IV PRN ×4 (04:06→23:49)
[2021-08-13 05:52] LABS: BASOPHILS % (AUTO) 0 % (0-10); EOSINOPHILS # (AUTO) 0.2 10^3/uL (0.0-0.3); EOSINOPHILS % (AUTO) 2 % (0-10); HEMATOCRIT 40 % (40-54); HEMOGLOBIN 12.7 g/dL (13.3-17.7); LYMPHOCYTES # (AUTO) 0.8 10^3/uL (1.0-4.0); LYMPHOCYTES % (AUTO) 10 % (12-44); MEAN CORPUSCULAR HEMOGLOBIN 28 pg (25-34); MEAN CORPUSCULAR HGB CONC 32 g/dL (32-36); MEAN CORPUSCULAR VOLUME 86 fL (80-99); MEAN PLATELET VOLUME 11.4 fL (9.0-12.2); MONOCYTES # (AUTO) 0.8 10^3/uL (0.0-1.0); MONOCYTES % (AUTO) 10 % (0-12); NEUTROPHILS # (AUTO) 5.9 10^3/uL (1.8-7.8); NEUTROPHILS % (AUTO) 77 % (42-75); PLATELET COUNT 333 10^3/uL (130-400); WHITE BLOOD COUNT 7.7 10^3/uL (4.3-11.0)
[2021-08-13] MEDS: inSUlin ASPART (NovoLOG) 1 UNIT/0.01 ML (CHARGE PER UNIT) SC SCH ×4 (05:56→21:00)
[2021-08-13 06:00] LABS: PROTHROMBIN TIME PATIENT 13.8 SEC (12.2-14.7)
[2021-08-13 06:07] LABS: POTASSIUM 4.6 MMOL/L (3.6-5.0)
[2021-08-13 06:08] LABS: CALCIUM 8.4 MG/DL (8.5-10.1)
[2021-08-13 06:10] LABS: TOTAL PROTEIN 6.7 GM/DL (6.4-8.2)
[2021-08-13 06:11] LABS: BILIRUBIN,TOTAL 0.3 MG/DL (0.1-1.0)
[2021-08-13 06:13] LABS: CREATININE SERUM 0.75 MG/DL (0.60-1.30)
--- NOTE | 2021-08-13 07:17 | Progress Note - Surgery ---
[facility] 08/13/21 0717: Subjective Date Seen by a Provider: Aug 13, 2021 Time Seen by a Provider: 07:59 Subjective/Events-last exam Patient continues to experience abdominal pain. States the pain is what causes the nausea Continues to not have a BM Review of Systems General: Chills, Other (fevers) Pulmonary: Dyspnea; No Cough Cardiovascular: No: Chest Pain, Palpitations Gastrointestinal: Nausea, Abdominal Pain Objective Exam Vital Signs Date Time Temp Pulse Resp B/P (MAP) Pulse Ox O2 Delivery O2 Flow Rate FiO2 08/13/21 03:48 36.3 81 17 101/69 (80) 94 Face Tent 7.50 08/13/21 00:00 36.7 85 18 109/76 (87) 96 Face Tent 10.00 08/12/21 21:57 94 Nasal Cannula 4.00 08/12/21 20:00 94 Nasal Cannula 4.00 08/12/21 19:50 36.2 85 18 118/78 (91) 89 Nasal Cannula 3.00 08/12/21 16:00 OxyMask 3.00 08/12/21 15:56 35.9 87 18 100/68 (79) 90 Nasal Cannula 3.00 08/12/21 12:40 85 20 89 Room Air 08/12/21 12:35 83 16 89 OxyMask 08/12/21 12:12 35.9 96 18 102/70 (81) 90 Room Air 08/12/21 08:00 Room Air 08/12/21 08:00 36.0 93 20 103/70 (81) 90 Room Air I & O 08/13/21 07:00 Intake Total 240 ml Balance 240 ml Capillary Refill : Less Than 3 Seconds General Appearance: Chronically ill, Cachetic HEENT: PERRL/EOMI, Pharynx Normal; No Scleral Icterus (L), No Scleral Icterus (R) Neck: Normal Inspection, Supple Respiratory: No Accessory Muscle Use, No Respiratory Distress Cardiovascular: Regular Rate, Rhythm, No Murmur Peripheral Pulses: 2+ Radial Pulses (R), 2+ Radial Pulses (L) Gastrointestinal: soft, distended, hernia (Umbilical), hepatomegaly Extremity: Non Tender, No Calf Tenderness Neurologic/Psychiatric: Alert, Oriented x3, Depressed Affect Skin: Normal Color, Warm/Dry Lymphatic: No Adenopathy (supraclavicular or posterior cervical) Results Lab Laboratory Tests 08/12/21 11:33: Glucometer 224H 08/12/21 13:52: Carcinoembryonic Antigen 4.7, Prostate Specific Antigen 1.60 08/12/21 16:44: Glucometer 211H 08/12/21 20:00: Glucometer 206H 08/13/21 05:16: Glucometer 187H 08/13/21 05:30: White Blood Count 7.7, Red Blood Count 4.61, Hemoglobin 12.7L, Hematocrit 40, Mean Corpuscular Volume 86, Mean Corpuscular Hemoglobin 28, Mean Corpuscular Hemoglobin Concent 32, Red Cell Distribution Width 13.6, Platelet Count 333, Mean Platelet Volume 11.4, Immature Granulocyte % (Auto) 1, Neutrophils (%) (Auto) 77H, Lymphocytes (%) (Auto) 10L, Monocytes (%) (Auto) 10, Eosinophils (%) (Auto) 2, Basophils (%) (Auto) 0, Neutrophils # (Auto) 5.9, Lymphocytes # (Auto) 0.8L, Monocytes # (Auto) 0.8, Eosinophils # (Auto) 0.2, Basophils # (Auto) 0.0, Immature Granulocyte # (Auto) 0.1, Prothrombin Time 13.8, INR Comment 1.0, Sodium Level 133L, Potassium Level 4.6, Chloride Level 95L, Carbon Dioxide Level 27, Anion Gap 11, Blood Urea Nitrogen 37H, Creatinine 0.75, Estimat Glomerular Filtration Rate 101, BUN/Creatinine Ratio 49, Glucose Level 194H, Calcium Level 8.4L, Corrected Calcium 9.2, Total Bilirubin 0.3, Aspartate Amino Transf (AST/SGOT) 9, Alanine Aminotransferase (ALT/SGPT) 10, Alkaline Phosphatase 61, Total Protein 6.7, Albumin 3.0L Microbiology 08/09/21 Gram Stain - Final, Complete 08/09/21 Body Fluid Culture - Final, Complete No growth 08/08/21 Blood Culture - Preliminary, Resulted No growth Procedures NAME: [facility] REC#: [id number] : 1960 ADMIT DATE: 08/10/21 PHYSICIAN: MELVINA CASTILLO DO PROGRESS NOTE Post-Operative Progess Note Surgeon (s)/Braid Cutter (s) Surgeon MELVINA CASTILLO DO Braid Cutter: none Pre-Operative Diagnosis Abd pain, ??colon mass Post-Operative Diagnosis Fecal impaction/Constipation Colon polyp int hemorrhoids Procedure & Operative Findings Date of Procedure 08/12/21 Procedure Performed/Findings Flex Sig with snare polypectomy PROCEDURE NOTE: After informed consent was obtained, the patient was brought to the endoscopy suite, placed in bed in left lateral decubitus position. He was administered IV sedation by the PROSTHODONTIST who then monitored his vitals the entire time, heart rate, blood pressure and pulse ox and the scope was inserted. Immediately upon entering encountered large fecal balls; pictures taken. CT had suggestion of Sigmoid mass and so pushed past the stool and actually able to get to the splenic fle xure. May have gotten just past this but ran into complete blockage of large fecal balls. At this point slowly withdrew the scope, insufflating to look at the mera, down the descending colon down and through the sigmoid did not see any mass or narrowing. Did see a polyp and elected to do a snare polypectomy to completely remove it. I also saw what almost looked like sloughed mucosa, which I tried to suction up to send to pathology. Continued down into the rectal vault and found more fecal balls and noted some internal hemorrhoids. The patient tolerated the procedure. He was recovered in endoscopy suite. Anesthesia Type IV sedation by PROSTHODONTIST Estimated Blood Loss Estimated blood loss (mL): scant Specimens/Packing Specimens Removed Sigmoid polyp ?? tissue MELVINA CASTILLO DO Aug 12, 2021 13:34 <Created by MELVINA CASTILLO DO> <Electronically signed by MELVINA CASTILLO DO> 08/12/21 6815 Assessment/Plan Assessment/Plan Assessment/Plan Ascites causing moderate distension and symptoms such as nausea and vomiting - therapeutic paracentesis with 3.5 L of fluid removed - Recommend Outpatient follow up as per chart review patient has had atleast 3 paracentesis during July. -Plan Diagnostic laparoscopy -need to rule colonic mass and possible omental caking as causes of abdominal pain Constipation without bowel obstruction or free air Bilateral pleural effusions with dependent atelectasis revealed on AAS - possible thoracentesis if shortness of breath continues to worsen. MELVINA CASTILLO DO 08/13/21 1105: Subjective Time Seen by a Provider: 10:25 Subjective/Events-last exam Pt seen just prior to going back to OR. No new complaints. Review of Systems General: Chills, Fatigue, Other (fevers) Pulmonary: Dyspnea; No Cough Cardiovascular: No: Chest Pain, Palpitations Gastrointestinal: Nausea, Abdominal Pain Objective Exam General Appearance: Chronically ill, Cachetic Respiratory: No Accessory Muscle Use, No Respiratory Distress, Decreased Breath Sounds Cardiovascular: Regular Rate, Rhythm, No Murmur Gastrointestinal: soft, distended, hernia (Umbilical), hepatomegaly Assessment/Plan Assessment/Plan Assessment/Plan Ascites causing moderate distension and symptoms such as nausea and vomiting - therapeutic paracentesis with 3.5 L of fluid removed - Recommend Outpatient follow up as per chart review patient has had atleast 3 paracentesis during July. -Plan Diagnostic laparoscopy -need to rule colonic mass and possible omental caking as causes of abdominal pain Constipation without bowel obstruction or free air Bilateral pleural effusions with dependent atelectasis Supervisory-Addendum Brief Verification & Attestation Participated in pt care: history, MDM, physical Personally performed: exam, history, MDM, supervision of care Care discussed with: Medical Student Procedures: n/a Verification and Attestation of Medical Student E/M Service A medical student performed and documented this service. I then reviewed and verified all information documented by the medical student and made modifications to such information, when appropriate. I personally performed a physical exam, medical decision making and then discussed any differences betw een the notes and made revisions as necessary to create one note. Melvina Castillo , 08/13/21 , 11:05 KYLEE RAMOS Aug 13, 2021 07:17 MELVINA CASTILLO DO Aug 13, 2021 11:05
[2021-08-13] MEDS ORDERED: LACTATED RINGERS 1,000 ML IV PRN (08:45)
[2021-08-13] MEDS ORDERED: LIDOCAINE/EPI 1%-1:200,000 (XYLOCAINE) 30 ML VIAL ONE (09:38)
[2021-08-13] MEDS ORDERED: MIDAZOLAM 2 MG/2 ML (VERSED) VIAL ONE (09:43)
[2021-08-13] MEDS ORDERED: fentaNYL INJ 100 MCG/2 ML AMP ONE (09:43)
[2021-08-13] MEDS ORDERED: ceFAZolin 2 GM IV Premixed 50 ML ONE (10:03)
[2021-08-13] MEDS: polyethylene glycoL POWDER 17 GM (MIRALAX) PACK PO SCH ×2 (10:37→20:16)
[2021-08-13] MEDS: SENNA W/DOCUSATE (SENOKOT S) TABLET PO SCH ×2 (10:37→20:17)
[2021-08-13] MEDS: DOCUSATE SODIUM 100 MG (COLACE) CAP PO SCH ×2 (10:37→20:17)
[2021-08-13] MEDS: FUROSEMIDE 20 MG (LASIX) TAB PO SCH (10:37)
[2021-08-13] MEDS: GABAPENTIN 100 MG (NEURONTIN) CAP PO SCH ×2 (10:37→20:16)
[2021-08-13] MEDS: SPIRONOLACTONE 25 MG (ALDACTONE) TAB PO SCH (10:37)
[2021-08-13] MEDS: ACETAMINOPHEN 500 MG TAB (TYLENOL) PO SCH ×3 (10:38→20:17)
[2021-08-13] MEDS: NICOTINE 14 MG (NICODERM) PATCH TD SCH (10:38)
[2021-08-13] MEDS ORDERED: ceFAZolin 2 GM IV Premixed 50 ML IV ONE (10:45)
[2021-08-13] MEDS ORDERED: LIDOCAINE PF 2% 5 ML (XYLOCAINE) VIAL ONE (11:01)
[2021-08-13] MEDS ORDERED: proPOfol 200 MG/20 ML (DIPRIVAN) VIAL IV ONE (11:01)
[2021-08-13] MEDS ORDERED: ROCURONIUM 50 MG/5 ML (ZEMURON) VIAL IV ONE (11:02)
--- NOTE | 2021-08-13 11:02 | Progress Note-Post Operative ---
Post-Operative Progess Note Surgeon (s)/Lead Massage Therapist (s) Surgeon MELVINA MAXWELL DO Lead Massage Therapist: Ariel Pre-Operative Diagnosis Abd pain, Ascites, ??omental caking Post-Operative Diagnosis Intra-peritoneal masses Ascites Procedure & Operative Findings Date of Procedure 08/13/21 Procedure Performed/Findings Diagnostic Laparoscopy with biopsy of intra-peritoneal masses Pleur-X catheter placement Anesthesia Type GET Estimated Blood Loss Estimated blood loss (mL): scant Specimens/Packing Specimens Removed Intra-peritoneal masses Culture of mass MELVINA MAXWELL DO Aug 13, 2021 11:02
[2021-08-13] MEDS ORDERED: ONDANSETRON 4 MG/2 ML (SDV) Z0FRAN ONE (11:03)
[2021-08-13] MEDS ORDERED: SEVOFLURANE (ULTANE) 15 ML INHAL SOLN ONE ×3 (11:04→11:07)
[2021-08-13] MEDS ORDERED: PHENYLEPHRINE 100 MCG/ML 10 ML (ANESTHESIA) SYR ONE (11:04)
[2021-08-13] MEDS ORDERED: GLYCOPYRROLATE 0.2 MG/ML (ROBINUL) 2 ML VIAL ONE (11:05)
[2021-08-13] MEDS ORDERED: NEOSTIGMINE 3 MG/3 ML VIAL ONE (11:05)
[2021-08-13] MEDS ORDERED: morphine INJ 10 MG/ML 1ML (SYR OR VIAL) ONE (11:40)
[2021-08-13] MEDS ORDERED: morphine INJ 10 MG/ML 1ML (SYR OR VIAL) IVP STA (11:51)
--- NOTE | 2021-08-13 13:36 | Anesthesia-General Post-Op ---
General Patient Condition Mental Status/LOC: Same as Preop Cardiovascular: Satisfactory Nausea/Vomiting: Absent Respiratory: Satisfactory Pain: Controlled Complications: Absent Post Op Complications Complications None Follow Up Care/Instructions Patient Instructions None needed. Anesthesia/Patient Condition Patient Condition Patient is doing well, no complaints, stable vital signs, no apparent adverse anesthesia problems. No complications reported per nursing. EDVIN ACOSAT CRNA Aug 13, 2021 13:36
--- NOTE | 2021-08-13 13:40 | OPERATIVE REPORT ---
DATE OF SERVICE: 08/13/2021 PREOPERATIVE DIAGNOSIS: Ascites, questionable omental caking and abdominal pain. POSTOPERATIVE DIAGNOSIS: Ascites and intraperitoneal masses with omental caking. PROCEDURES: 1. Diagnostic laparoscopy with intraperitoneal biopsies. 2. PleurX catheter placement. SURGEON: Zack Castillo DO MUFFLER TENDER: Chris George DO. ANESTHESIA: General endotracheal tube. SPECIMEN: Intraperitoneal biopsies as well as tissue sent for acid fast culture. BLOOD LOSS: Scant. FLUIDS: Per anesthesia. POSTOPERATIVE CONDITION: Stable. INDICATION FOR PROCEDURE: The patient is a 61-year-old male with abdominal pain, ascites, questionable omental caking on CT, not improving and multiple paracentesis have been nondiagnostic. FINDINGS: The patient had intraperitoneal masses looked like peritoneal seeding all over the abdomen as well as omental caking. He did have some ascites as well. PROCEDURE NOTE: After informed consent was obtained, the patient was brought to the operating room, placed on the table in the supine position. He was sterilely prepped and draped in normal fashion. Local lidocaine was used to infiltrate the left upper quadrant, made an incision with #15 blade, carried down through the skin into subcutaneous tissue, then deepened down to subcutaneous tissue with Bovie electrocautery down to the fascia. Fascia was incised with Bovie electrocautery, bluntly spread the muscle and then went through the posterior fascia with Bovie electrocautery, then bluntly entered the abdomen, got out some ascitic fluid. This was suctioned up and then placed a 12 mm trocar port under direct visualization. Created pneumoperitoneum, looked inside and saw masses all over the peritoneum as well as caking of the omentum and across the top over the liver as well. Did not really appear to be coming from the liver. At this point, placed the port in the right upper quadrant using local lidocaine, 11 blade for stab incision and VersaStep system, all done under direct visualization and then got a biopsy forceps and took three or four of the small peritoneal seeding, removed these with the biopsy forceps, passed this off the table and then got another specimen of these intraperitoneal masses as well as some of the tissue to be sent for culture. Because he has all of this going on in the belly and had had multiple paracentesis, elected to place a PleurX catheter. Made a stab incision about 8 cm below the 5 mm trocar port and then tunneled up to the 5 mm trocar port, then placed a dilator catheter down the opening from the trocar port and then tunneled the catheter through here, placed it through the dilator catheter using Seldinger technique and it went into the abdomen. Then try to direct into the right lower quadrant, it was in the right lower quadrant, but then went up above the liver, but appeared to be in good position, took pictures of the intraperitoneal masses as well as the catheter and then at this point sutured the catheter in place, closed the 5 mm incision and then allowed the pneumoperitoneum to escape and removed the 12 mm port, closed this left upper quadrant incision, closing the fascia with 0 Vicryl [id number] suture, then closed the skin with 4-0 undyed Monocryl 3 interrupted subcuticular stitches. Area was cleaned and dried, dressings placed. The patient tolerated the procedure and was transferred to recovery room in stable condition. Sponge, instrument and needle count correct at the end of the case. Dr. George helped in this case to make incisions, close incisions, placed the PleurX catheter, identify anatomy and to help with intraperitoneal biopsy. Job ID: [id number] DocumentID: [id number] Dictated Date: 08/13/2021 11:57:39 Treasury Consultant Date: 08/13/2021 13:39:04 Dictated By: ZACK CASTILLO DO
[2021-08-13] MEDS ORDERED: morphine INJ 10 MG/ML 1ML (SYR OR VIAL) IVP ONE (13:45)
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
[2021-08-13] MEDS ORDERED: MAGNESIUM CITRATE 300 ML BTL PO ONE (18:45)
[2021-08-13] MEDS: ONDANSETRON 4 MG/2 ML (SDV) Z0FRAN IV PRN (20:16)
[2021-08-14 00:48] VITALS: BP 110/67
[2021-08-14 03:50] VITALS: BP 110/67
[2021-08-14] MEDS: morphine INJ 4 MG/ML 1 ML (VIAL/SYRINGE) IV PRN ×6 (05:08→20:48)
[2021-08-14] MEDS: inSUlin ASPART (NovoLOG) 1 UNIT/0.01 ML (CHARGE PER UNIT) SC SCH ×2 (05:26→10:50)
[2021-08-14] MEDS: SPIRONOLACTONE 25 MG (ALDACTONE) TAB PO SCH (08:14)
[2021-08-14] MEDS: DOCUSATE SODIUM 100 MG (COLACE) CAP PO SCH ×2 (08:14→20:57)
[2021-08-14] MEDS: FUROSEMIDE 20 MG (LASIX) TAB PO SCH (08:14)
[2021-08-14] MEDS: GABAPENTIN 100 MG (NEURONTIN) CAP PO SCH ×2 (08:15→21:00)
[2021-08-14] MEDS: SENNA W/DOCUSATE (SENOKOT S) TABLET PO SCH ×2 (08:15→21:00)
[2021-08-14] MEDS: polyethylene glycoL POWDER 17 GM (MIRALAX) PACK PO SCH ×2 (08:15→21:00)
[2021-08-14] MEDS: NICOTINE 14 MG (NICODERM) PATCH TD SCH (08:15)
[2021-08-14] MEDS: ACETAMINOPHEN 500 MG TAB (TYLENOL) PO SCH ×3 (08:15→21:00)
[2021-08-14 08:17] VITALS: BP 101/71
[2021-08-14] MEDS ORDERED: ALPRAZolam 0.5 MG (XANAX) TAB ONE (08:40)
[2021-08-14] MEDS: ALPRAZolam 0.5 MG (XANAX) TAB PO PRN ×2 (08:41→20:48)
--- NOTE | 2021-08-14 11:19 | Progress Note ---
Subjective Date Seen by a Provider: Aug 14, 2021 Time Seen by a Provider: 10:40 Subjective/Events-last exam Patient seen with Dr. Miranda. Patient reports abdominal pain but better after xanax. Passing flatus. Tolerating clear liquids. RN reports patient has been refusing medications except for his xanax. Objective Exam Vital Signs Date Time Temp Pulse Resp B/P (MAP) Pulse Ox O2 Delivery O2 Flow Rate FiO2 08/14/21 08:17 36.6 106 20 101/71 (81) 90 Nasal Cannula 5.00 08/14/21 08:00 Nasal Cannula 5.00 08/14/21 03:50 36.6 7 22 110/67 (81) 94 Nasal Cannula 5.00 08/14/21 00:48 37.4 93 20 110/67 (81) 91 Nasal Cannula 5.00 08/13/21 20:20 92 Nasal Cannula 5.00 08/13/21 19:27 36.8 92 18 107/66 (80) 91 Nasal Cannula 5.00 08/13/21 16:00 36.2 86 20 90/59 (69) 99 Nasal Cannula 3.00 08/13/21 14:23 97 Nasal Cannula 4.00 08/13/21 12:30 36.1 83 18 93/73 (80) 93 Nasal Cannula 7.50 08/13/21 12:20 Nasal Cannula 3 08/13/21 12:10 36.5 19 109/77 (88) 93 Nasal Cannula 3 08/13/21 12:00 14 109/79 (89) 96 OxyMask 10 08/13/21 11:50 OxyMask 10 08/13/21 11:50 16 113/82 (92) 96 OxyMask 10 08/13/21 11:40 18 129/84 (99) 94 OxyMask 10 08/13/21 11:30 14 129/93 (105) 92 OxyMask 10 08/13/21 11:23 36.5 16 107/76 (86) 91 OxyMask 10 08/13/21 11:23 OxyMask 10 I & O 08/14/21 07:00 Intake Total 270 ml Output Total 200 ml Balance 70 ml Capillary Refill : Less Than 3 Seconds General Appearance: No Apparent Distress, WD/WN Neck: Normal Inspection, Supple Respiratory: No Accessory Muscle Use, No Respiratory Distress, Decreased Breath Sounds Cardiovascular: Regular Rate, Rhythm, No Edema Gastrointestinal: normal bowel sounds, distended, tenderness (LUQ) Extremity: Normal Inspection, Normal Range of Motion Neurologic/Psychiatric: Alert, Oriented x3 Skin: Normal Color, Warm/Dry, Other (Abdominal incisions C/D/I) Results Lab Laboratory Tests 08/13/21 17:25: Glucometer 140H 08/13/21 20:32: Glucometer 157H 08/14/21 05:22: Glucometer 151H Microbiology 08/09/21 Gram Stain - Final, Complete 08/09/21 Body Fluid Culture - Final, Complete No growth 08/08/21 Blood Culture - Final, Complete No growth Assessment/Plan Assessment/Plan Assess & Plan/Chief Complaint A 61 year old male with ascites causing moderate distension and symptoms such as nausea and vomiting, S/P diagnostic laparoscopy with biopsies, constipation VSS Continue Pain and nausea meds as needed Laxatives for constipation Will advance to low sodium diet GEORGINA MURILLO APRN Aug 14, 2021 11:19
[2021-08-14 12:09] VITALS: BP 112/77
[2021-08-14] MEDS ORDERED: MAGNESIUM CITRATE 300 ML BTL PO ONE (12:45)
[2021-08-14] MEDS: ONDANSETRON 4 MG/2 ML (SDV) Z0FRAN IV PRN ×2 (15:05→23:11)
[2021-08-14 16:00] VITALS: BP 108/73
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
[2021-08-14] MEDS ORDERED: SCOPOLAMINE 1.5 MG (TRANSDERM-SCOP) PATCH ONE (17:11)
[2021-08-14] MEDS ORDERED: LORazepam INJ 2 MG/ML (ATIVAN) VIAL IVP PRN (17:15)
[2021-08-14] MEDS ORDERED: SCOPOLAMINE 1.5 MG (TRANSDERM-SCOP) PATCH TD ONE (17:15)
[2021-08-14 20:00] VITALS: BP 102/74
[2021-08-15 00:34] VITALS: BP 112/68
[2021-08-15] MEDS: morphine INJ 4 MG/ML 1 ML (VIAL/SYRINGE) IV PRN ×4 (03:56→22:28)
[2021-08-15 04:00] VITALS: BP 101/71
[2021-08-15 06:13] LABS: BASOPHILS % (AUTO) 1 % (0-10); EOSINOPHILS # (AUTO) 0.1 10^3/uL (0.0-0.3); EOSINOPHILS % (AUTO) 1 % (0-10); HEMATOCRIT 42 % (40-54); HEMOGLOBIN 12.9 g/dL (13.3-17.7); LYMPHOCYTES % (AUTO) 13 % (12-44); MEAN CORPUSCULAR HEMOGLOBIN 27 pg (25-34); MEAN CORPUSCULAR HGB CONC 31 g/dL (32-36); MEAN CORPUSCULAR VOLUME 87 fL (80-99); MEAN PLATELET VOLUME 11.8 fL (9.0-12.2); MONOCYTES # (AUTO) 0.9 10^3/uL (0.0-1.0); MONOCYTES % (AUTO) 11 % (0-12); NEUTROPHILS # (AUTO) 5.6 10^3/uL (1.8-7.8); NEUTROPHILS % (AUTO) 74 % (42-75); PLATELET COUNT 322 10^3/uL (130-400); WHITE BLOOD COUNT 7.5 10^3/uL (4.3-11.0)
[2021-08-15 06:23] LABS: POTASSIUM 4.6 MMOL/L (3.6-5.0)
[2021-08-15 06:24] LABS: CALCIUM 8.8 MG/DL (8.5-10.1)
[2021-08-15 06:28] LABS: CREATININE SERUM 0.98 MG/DL (0.60-1.30)
[2021-08-15] MEDS: ONDANSETRON 4 MG/2 ML (SDV) Z0FRAN IV PRN ×2 (07:44→17:05)
[2021-08-15] MEDS: SPIRONOLACTONE 25 MG (ALDACTONE) TAB PO SCH (07:47)
[2021-08-15] MEDS: DOCUSATE SODIUM 100 MG (COLACE) CAP PO SCH ×2 (07:47→23:10)
[2021-08-15] MEDS: FUROSEMIDE 20 MG (LASIX) TAB PO SCH (07:47)
[2021-08-15] MEDS: GABAPENTIN 100 MG (NEURONTIN) CAP PO SCH ×2 (07:48→23:00)
[2021-08-15] MEDS: NICOTINE 14 MG (NICODERM) PATCH TD SCH (07:48)
[2021-08-15] MEDS: polyethylene glycoL POWDER 17 GM (MIRALAX) PACK PO SCH ×2 (07:48→23:01)
[2021-08-15] MEDS: ACETAMINOPHEN 500 MG TAB (TYLENOL) PO SCH ×3 (07:48→22:57)
[2021-08-15] MEDS: SENNA W/DOCUSATE (SENOKOT S) TABLET PO SCH ×2 (07:48→23:10)
[2021-08-15 08:20] VITALS: BP 114/55
--- NOTE | 2021-08-15 09:39 | Progress Note ---
Subjective Date Seen by a Provider: Aug 15, 2021 Time Seen by a Provider: 09:30 Subjective/Events-last exam Patient seen with Dr. Miranda. Patient reports having abdominal pain, N/V. No BM but reports passing flatus. Objective Exam Vital Signs Date Time Temp Pulse Resp B/P (MAP) Pulse Ox O2 Delivery O2 Flow Rate FiO2 08/15/21 08:20 36.7 95 24 114/55 (74) 93 Nasal Cannula 5.00 08/15/21 07:53 Nasal Cannula 5.00 08/15/21 06:26 Nasal Cannula 5.00 08/15/21 04:00 36.7 97 20 101/71 (81) 96 Nasal Cannula 5.00 08/15/21 00:34 36.6 95 22 112/68 (83) 93 Nasal Cannula 5.00 08/14/21 20:45 Nasal Cannula 5.00 08/14/21 20:00 37.0 98 26 102/74 (83) 93 Nasal Cannula 5.00 08/14/21 16:03 Nasal Cannula 5.00 08/14/21 16:00 37.3 101 22 108/73 (85) 91 Nasal Cannula 5.00 08/14/21 12:09 37.4 97 18 112/77 (89) 91 Nasal Cannula 5.00 I & O 08/15/21 07:00 Intake Total 540 ml Output Total 720 ml Balance -180 ml Capillary Refill : Less Than 3 Seconds General Appearance: No Apparent Distress, WD/WN Neck: Normal Inspection, Supple Respiratory: No Accessory Muscle Use, No Respiratory Distress Cardiovascular: Regular Rate, Rhythm, No Edema Gastrointestinal: normal bowel sounds, distended, tenderness (LUQ) Extremity: Normal Inspection, Normal Range of Motion Neurologic/Psychiatric: Alert, Oriented x3 Skin: Normal Color, Warm/Dry, Other (Abdominal incisions C/D/I) Results Lab Laboratory Tests 08/15/21 05:28: White Blood Count 7.5, Red Blood Count 4.78, Hemoglobin 12.9L, Hematocrit 42, Mean Corpuscular Volume 87, Mean Corpuscular Hemoglobin 27, Mean Corpuscular Hemoglobin Concent 31L, Red Cell Distribution Width 13.7, Platelet Count 322, Mean Platelet Volume 11.8, Immature Granulocyte % (Auto) 1, Neutrophils (%) (Aut o) 74, Lymphocytes (%) (Auto) 13, Monocytes (%) (Auto) 11, Eosinophils (%) (Auto) 1, Basophils (%) (Auto) 1, Neutrophils # (Auto) 5.6, Lymphocytes # (Auto) 1.0, Monocytes # (Auto) 0.9, Eosinophils # (Auto) 0.1, Basophils # (Auto) 0.0, Immature Granulocyte # (Auto) 0.1, Sodium Level 136, Potassium Level 4.6, Chloride Level 95L, Carbon Dioxide Level 27, Anion Gap 14, Blood Urea Nitrogen 32H, Creatinine 0.98, Estimat Glomerular Filtration Rate 87, BUN/Creatinine Ratio 33, Glucose Level 204H, Calcium Level 8.8 Microbiology 08/13/21 Gram Stain - Final, Resulted 08/13/21 Anaerobic Culture, Resulted Pending 08/13/21 Surgical Culture - Preliminary, Resulted No growth 08/09/21 Gram Stain - Final, Complete 08/09/21 Body Fluid Culture - Final, Complete No growth 08/08/21 Blood Culture - Final, Complete No growth Assessment/Plan Assessment/Plan Assess & Plan/Chief Complaint A 61 year old male with ascites causing moderate distension and symptoms such as nausea and vomiting, S/P diagnostic laparoscopy with biopsies, constipation VSS Continue Pain and nausea meds as needed Laxatives for constipation Will advance to low sodium diet Will proceed with drainage of abdominal ascities GEORGINA MURILLO APRN Aug 15, 2021 09:39
[2021-08-15] MEDS: NS IV 1000 ML 1,000 ML IV SCH ×2 (10:20→20:29)
[2021-08-15 11:46] VITALS: BP 96/66
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
[2021-08-15 16:49] VITALS: BP 107/70
[2021-08-15] MEDS: ALPRAZolam 0.5 MG (XANAX) TAB PO PRN (17:07)
[2021-08-15 20:59] VITALS: BP 102/78
[2021-08-16] VITALS (7 sets, daily range): BP systolic 92–109; BP diastolic 65–72
[2021-08-16] MEDS: NS IV 1000 ML 1,000 ML IV SCH ×2 (05:12→15:20)
[2021-08-16] MEDS: morphine INJ 4 MG/ML 1 ML (VIAL/SYRINGE) IV PRN ×5 (06:37→21:35)
[2021-08-16] MEDS: ALPRAZolam 0.5 MG (XANAX) TAB PO PRN (06:37)
--- NOTE | 2021-08-16 07:25 | Progress Note - Surgery ---
[facility] 08/16/21 0725: Subjective Date Seen by a Provider: Aug 16, 2021 Time Seen by a Provider: 07:19 Subjective/Events-last exam POD 3. S/P Diagnostic Lap with biopsies and catheter placement. Patient continues to have abdominal pain. States it is constant pain that causes him to have nausea and vomiting. Gram stain was negative and anaerobic culture is still pending Patient refusing laxative Review of Systems General: Chills, Other (fevers) Pulmonary: Dyspnea ("difficulty breathing due to pain"); No Cough Cardiovascular: No: Chest Pain, Palpitations Gastrointestinal: Nausea, Vomiting, Abdominal Pain Objective Exam Vital Signs Date Time Temp Pulse Resp B/P (MAP) Pulse Ox O2 Delivery O2 Flow Rate FiO2 08/16/21 04:00 36.6 71 18 97/66 (76) 93 Nasal Cannula 5.00 08/16/21 00:00 36.6 77 17 92/65 (74) 96 Nasal Cannula 5.00 08/15/21 20:59 36.7 101 76 102/78 (86) 92 Nasal Cannula 5.00 08/15/21 20:25 Nasal Cannula 5.00 08/15/21 20:13 92 Nasal Cannula 5.00 08/15/21 16:49 36.8 82 18 107/70 (82) 91 Nasal Cannula 5.00 08/15/21 11:46 36.3 90 16 96/66 (76) 94 Nasal Cannula 5.00 08/15/21 08:20 36.7 95 24 114/55 (74) 93 Nasal Cannula 5.00 08/15/21 07:53 Nasal Cannula 5.00 I & O 08/16/21 07:00 Intake Total 2795 ml Output Total 825 ml Balance 1970 ml Capillary Refill : Less Than 3 Seconds General Appearance: No Apparent Distress, Chronically ill, Thin HEENT: PERRL/EOMI, Pharynx Normal; No Scleral Icterus (L), No Scleral Icterus (R) Neck: Normal Inspection, Supple Respiratory: No Accessory Muscle Use, No Respiratory Distress, Decreased Breath Sounds Cardiovascular: Regular Rate, Rhythm, No Edema, No Murmur, Normal Peripheral Pulses (+2 radial pulses bilaterally) Peripheral Pulses: 2+ Radial Pulses (R), 2+ Radial Pulses (L) Gastrointestinal: normal bowel sounds, distended, tenderness (LUQ) Extremity: Normal Inspection, No Pedal Edema, Calf Tenderness (in RLE) Neurologic/Psychiatric: Alert, Oriented x3, Depressed Affect Lymphatic: No Adenopathy (supraclavicular or posterior cervical) Results Lab Microbiology 08/13/21 Gram Stain - Final, Resulted 08/13/21 Anaerobic Culture, Resulted Pending 08/13/21 Surgical Culture - Preliminary, Resulted No growth 08/09/21 Gram Stain - Final, Complete 08/09/21 Body Fluid Culture - Final, Complete No growth 08/08/21 Blood Culture - Final, Complete No growth Assessment/Plan Assessment/Plan Assessment/Plan Ascites causing moderate distension and symptoms such as nausea and vomiting - therapeutic paracentesis with 3.5 L of fluid removed - Recommend Outpatient follow up as per chart review patient has had atleast 3 paracentesis during July. - Indwelling catheter placement Intraperotineal masses - Pending pathology results Constipation without bowel obstruction or free air -refusing laxative Bilateral pleural effusions with dependent atelectasis ZACK CASTILLO DO 08/16/21 1741: Subjective Time Seen by a Provider: 17:01 Subjective/Events-last exam Pt seen and examined, sitting up in no distress. States he has "bad" abdominal pain and left side is "4 times worse than it was". Pain meds not holding him and he wants to eat more. Review of Systems General: Chills, Other (fevers) Pulmonary: Dyspnea ("difficulty breathing due to pain"); No Cough Cardiovascular: No: Chest Pain, Palpitations Gastrointestinal: Nausea, Vomiting, Abdominal Pain Objective Exam General Appearance: Cachetic HEENT: PERRL/EOMI Respiratory: No Accessory Muscle Use, No Respiratory Distress, Decreased Breath Sounds Cardiovascular: Regular Rate, Rhythm, No Murmur Gastrointestinal: distended, tenderness (LUQ) Assessment/Plan Assessment/Plan Assessment/Plan Intraperotineal masses - Pending pathology results Ascites - Pleur-X catheter placement Constipation without bowel obstruction or free air Bilateral pleural effusions with dependent atelectasis Per nurse, pt is refusing all meds. He wants to eat, but only "bits and pieces, I can't hold anything down". Will increase morphine and he can eat whatever he wants. Supervisory-Addendum Brief Verification & Attestation Participated in pt care: history, MDM, physical Personally performed: exam, history, MDM, supervision of care Care discussed with: Medical Student Procedures: n/a Verification and Attestation of Medical Student E/M Service A medical student performed and documented this service. I then reviewed and verified all information documented by the medical student and made modifications to such information, when appropriate. I personally performed a physical exam, medical decision making and then discussed any differences between the notes and made revisions as necessary to create one note. Zack Castillo , 08/16/21 , 17:43 KYLEE RAMOS [facility] Aug 16, 2021 07:25 ZACK CASTILLO DO Aug 16, 2021 17:41
[2021-08-16] MEDS: FUROSEMIDE 20 MG (LASIX) TAB PO SCH (09:06)
[2021-08-16] MEDS: ACETAMINOPHEN 500 MG TAB (TYLENOL) PO SCH ×3 (09:06→20:33)
[2021-08-16] MEDS: polyethylene glycoL POWDER 17 GM (MIRALAX) PACK PO SCH ×2 (09:06→20:33)
[2021-08-16] MEDS: DOCUSATE SODIUM 100 MG (COLACE) CAP PO SCH ×2 (09:06→20:32)
[2021-08-16] MEDS: SPIRONOLACTONE 25 MG (ALDACTONE) TAB PO SCH (09:06)
[2021-08-16] MEDS: SENNA W/DOCUSATE (SENOKOT S) TABLET PO SCH ×2 (09:06→20:33)
[2021-08-16] MEDS: GABAPENTIN 100 MG (NEURONTIN) CAP PO SCH ×2 (09:06→20:33)
[2021-08-16] MEDS: NICOTINE 14 MG (NICODERM) PATCH TD SCH (09:07)
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
--- NOTE | 2021-08-16 16:53 | Progress Note ---
Progress Note Assessment/Plan Date Seen by Provider: Aug 16, 2021 Time Seen by Provider: 16:49 Events since last exam Explore laproscopy was done last Monday08/13/2021. Multiple seeding/masses were noticed by Dr Castillo. Biopsy were sent. I called pathology today and was told that we would have the result tomorrow earliest. I will f/u and see patient tomorrow once I have the path report. Pt has NO improvement so far. He feels the ascites is coming back. CEA and PSA are normal. Assessment/Plan 1. Large ascites, recurrent, s/p paracentesis 3.5 liters removed, cytology negative for malignancy. He had negative cytology from the last paracentesis 07/17/2020. Explore lap showed multiple seeding/masses in the peritoneal cavity and pathology pending. 2. CT scan of chest showed lesion developed in the lung over 3 weeks unlikely cancer. 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 3. Tumor markers CEA, PSA were unremarkable. Vitals Last set of Vitals Signs Vital Signs Date Time Temp Pulse Resp B/P (MAP) Pulse Ox O2 Delivery O2 Flow Rate FiO2 08/16/21 12:00 36.4 83 18 105/70 (82) 90 Nasal Cannula 5.00 I&O I&O Intake and Output 08/16/21 00:00 Intake Total 1745 ml Output Total 0 ml Balance 1745 ml Intake Oral 745 ml IV Total 1000 ml Output Urine Total 0 ml Bladder Scan Volume Amount 95 ml # Voids 2 Labs Microbiology 08/13/21 Gram Stain - Final, Resulted 08/13/21 Anaerobic Culture - Preliminary, Resulted No anaerobes isolated 08/13/21 Surgical Culture - Final, Resulted No growth 08/09/21 Gram Stain - Final, Complete 08/09/21 Body Fluid Culture - Final, Complete No growth 08/08/21 Blood Culture - Final, Complete No growth TERRIE RAMOS MD Aug 16, 2021 16:53
[2021-08-16] MEDS: PROMETHAZINE INJ 25 MG/ML (PHENERGAN) AMP IVP PRN (21:35)
[2021-08-17] MEDS: morphine INJ 4 MG/ML 1 ML (VIAL/SYRINGE) IV PRN ×3 (00:28→14:46)
[2021-08-17] MEDS: PROMETHAZINE INJ 25 MG/ML (PHENERGAN) AMP IVP PRN (02:35)
[2021-08-17] MEDS: NS IV 1000 ML 1,000 ML IV SCH ×3 (02:36→21:00)
[2021-08-17] MEDS: ALPRAZolam 0.5 MG (XANAX) TAB PO PRN (02:39)
[2021-08-17 03:31] VITALS: BP 114/69
--- NOTE | 2021-08-17 07:59 | Progress Note - Surgery ---
[facility] 08/17/21 0759: Subjective Date Seen by a Provider: Aug 17, 2021 Time Seen by a Provider: 07:54 Subjective/Events-last exam No acute events overnight, patient remains afebrile Micro revealed no growth on gram stain, anaerobic or surgical culture Patient continues to have abdominal pain Review of Systems General: Chills, Other (fevers) Pulmonary: Dyspnea (requiring O2); No Cough Cardiovascular: No: Chest Pain, Palpitations Gastrointestinal: Nausea, Abdominal Pain Objective Exam Vital Signs Date Time Temp Pulse Resp B/P (MAP) Pulse Ox O2 Delivery O2 Flow Rate FiO2 08/17/21 03:31 36.2 80 20 114/69 (84) 96 Nasal Cannula 5.00 08/16/21 22:57 36.5 87 20 100/70 (80) 95 Nasal Cannula 5.00 08/16/21 20:55 Nasal Cannula 5.00 08/16/21 19:06 37.2 93 19 108/72 (84) 90 Nasal Cannula 5.00 08/16/21 16:00 35.6 89 18 109/70 (83) 93 Nasal Cannula 5.00 08/16/21 12:00 36.4 83 18 105/70 (82) 90 Nasal Cannula 5.00 08/16/21 08:00 Nasal Cannula 08/16/21 08:00 36.1 87 16 105/70 (82) 92 Nasal Cannula 5.00 I & O 08/17/21 07:00 Intake Total 2035 ml Output Total 1325 ml Balance 710 ml Capillary Refill : Less Than 3 Seconds General Appearance: No Apparent Distress, WD/WN, Chronically ill, Thin HEENT: PERRL/EOMI, Pharynx Normal Neck: Non Tender, Supple Respiratory: No Accessory Muscle Use, No Respiratory Distress, Decreased Breath Sounds Cardiovascular: Regular Rate, Rhythm, No Edema, No Murmur Peripheral Pulses: 2+ Radial Pulses (R), 2+ Radial Pulses (L) Gastrointestinal: distended, tenderness, hernia (umbilical), hepatomegaly Extremity: Normal Inspection Neurologic/Psychiatric: Alert, Oriented x3 Skin: Normal Color, Warm/Dry Lymphatic: No Adenopathy (supraclavicular or posterior cervical) Results Lab Laboratory Tests 08/17/21 05:13: Glucometer 124H Microbiology 08/13/21 Gram Stain - Final, Resulted 08/13/21 Anaerobic Culture - Preliminary, Resulted No anaerobes isolated 08/13/21 Surgical Culture - Final, Resulted No growth 08/09/21 Gram Stain - Final, Complete 08/09/21 Body Fluid Culture - Final, Complete No growth 08/08/21 Blood Culture - Final, Complete No growth Assessment/Plan Assessment/Plan Assessment/Plan Intraperotineal masses - No growth on gram stain, anaerobic, or surgical culture Ascites - Pleur-X catheter placement Constipation without bowel obstruction or free air Bilateral pleural effusions with dependent atelectasis ZACK CASTILLO DO 08/17/21 1339: Subjective Time Seen by a Provider: 11:38 Subjective/Events-last exam Pt seen and examined, states his pain is a little better today. Got better after draining some ascites yesterday. Review of Systems General: Fatigue, Malaise, Other (fevers) Pulmonary: Dyspnea (requiring O2); No Cough Cardiovascular: No: Chest Pain, Palpitations Gastrointestinal: Nausea, Abdominal Pain Objective Exam General Appearance: Chronically ill, Cachetic Respiratory: No Accessory Muscle Use, No Respiratory Distress, Decreased Breath Sounds Cardiovascular: Regular Rate, Rhythm, No Murmur Gastrointestinal: soft, distended, tenderness (diffusely), hernia (umbilical), hepatomegaly Assessment/Plan Assessment/Plan Assessment/Plan Intraperotineal masses - No growth on gram stain, anaerobic, or surgical culture--still waiting on pathology Ascites - Pleur-X catheter placement, drain every other day Constipation - pt taking stool softener Bilateral pleural effusions with dependent atelectasis - not worse will monitor Supervisory-Addendum Brief Verification & Attestation Participated in pt care: history, MDM, physical Personally performed: exam, history, MDM, supervision of care Care discussed with: Medical Student Procedures: n/a Verification and Attestation of Medical Student E/M Service A medical student performed and documented this service. I then reviewed and verified all information documented by the medical student and made modifications to such information, when appropriate. I personally performed a physical exam, medical decision making and then discussed any differences between the notes and made revisions as necessary to create one note. Zack Castillo , 08/17/21 , 13:38 KYLEE RAMOS [facility] Aug 17, 2021 07:59 ZACK CASTILLO DO Aug 17, 2021 13:39
[2021-08-17 08:06] VITALS: BP 126/84
[2021-08-17] MEDS: polyethylene glycoL POWDER 17 GM (MIRALAX) PACK PO SCH ×2 (10:24→21:01)
[2021-08-17] MEDS: FUROSEMIDE 20 MG (LASIX) TAB PO SCH (10:24)
[2021-08-17] MEDS: GABAPENTIN 100 MG (NEURONTIN) CAP PO SCH ×2 (10:24→21:02)
[2021-08-17] MEDS: SPIRONOLACTONE 25 MG (ALDACTONE) TAB PO SCH (10:24)
[2021-08-17] MEDS: SENNA W/DOCUSATE (SENOKOT S) TABLET PO SCH ×2 (10:24→21:01)
[2021-08-17] MEDS: DOCUSATE SODIUM 100 MG (COLACE) CAP PO SCH ×2 (10:24→21:02)
[2021-08-17] MEDS: ACETAMINOPHEN 500 MG TAB (TYLENOL) PO SCH ×3 (10:25→21:02)
[2021-08-17] MEDS: NICOTINE 14 MG (NICODERM) PATCH TD SCH (10:25)
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
[2021-08-17 11:45] VITALS: BP 104/69
[2021-08-17] MEDS: ONDANSETRON 4 MG/2 ML (SDV) Z0FRAN IV PRN (14:46)
--- NOTE | 2021-08-17 14:48 | Progress Note ---
Progress Note Assessment/Plan Date Seen by Provider: Aug 17, 2021 Time Seen by Provider: 14:44 Events since last exam Pt is feeling slightly better today. My phone conversation with Dr. 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 Pending the immunohistology to identify the primary site. Please set up port placement for chemotherapy. I have told the patient that he has cancer. I tried to call his twice today but got no answer. Pt can be follow up at the cancer center once Dr Molina and Dr. Castillo decide the discharge plan. Assessment/Plan A/P: 1. 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 He had negative cytology from the last paracentesis 07/17/2020. s/p explore lap showed multiple seeding/masses in the peritoneal cavity. Pathology revealed poorly differentiated adenocarcinoma. We are still awaiting for the immuno staining for the primary/origination. 2. Please [address] port in preparation for chemotherapy. 3. Tumor markers CEA, PSA were unremarkable. 4. I will discuss with patient and afternoon about final diagnosis and treatment plans. 5. Pain control with morphine ER 30mg bid and hydrocodone 5mg q 2-4 hrs PRN along with stool softener. Vitals Last set of Vitals Signs Vital Signs Date Time Temp Pulse Resp B/P (MAP) Pulse Ox O2 Delivery O2 Flow Rate FiO2 08/17/21 11:45 36.8 101 16 104/69 (81) 96 Nasal Cannula 5.00 I&O I&O Intake and Output 08/17/21 00:00 Intake Total 3085 ml Output Total 1275 ml Balance 1810 ml Intake Oral 1110 ml IV Total 1975 ml Output Urine Total 1275 ml # Voids 1 Labs Laboratory Tests 08/17/21 05:13: Glucometer 124H Microbiology 08/13/21 Gram Stain - Final, Resulted 08/13/21 Anaerobic Culture - Preliminary, Resulted No anaerobes isolated 08/13/21 Surgical Culture - Final, Resulted No growth 08/09/21 Gram Stain - Final, Complete 08/09/21 Body Fluid Culture - Final, Complete No growth 08/08/21 Blood Culture - Final, Complete No growth TERRIE RAMOS MD Aug 17, 2021 14:48
[2021-08-17 15:00] VITALS: BP 106/73
[2021-08-17 19:50] VITALS: BP 116/78
[2021-08-17] MEDS: morphine ER 30 MG (MS CONTIN) TAB PO SCH (21:01)
[2021-08-18 00:27] VITALS: BP 113/74
[2021-08-18] MEDS: morphine INJ 4 MG/ML 1 ML (VIAL/SYRINGE) IV PRN ×2 (00:42→20:09)
[2021-08-18 03:57] VITALS: BP 111/77
--- NOTE | 2021-08-18 07:11 | Progress Note - Surgery ---
[facility] 08/18/21 0711: Subjective Date Seen by a Provider: Aug 18, 2021 Time Seen by a Provider: 07:06 Subjective/Events-last exam No acute events overnight. 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 Pathology will be performing more workup with different stains Review of Systems General: No Chills, No Other Pulmonary: Dyspnea (requiring oxygen); No Cough Cardiovascular: No: Chest Pain, Palpitations Gastrointestinal: Abdominal Pain; No: Nausea, Vomiting Objective Exam Vital Signs Date Time Temp Pulse Resp B/P (MAP) Pulse Ox O2 Delivery O2 Flow Rate FiO2 08/18/21 03:57 36.3 82 18 111/77 (88) 97 Nasal Cannula 5.00 08/18/21 00:27 36.7 93 20 113/74 (87) 97 Nasal Cannula 5.00 08/17/21 20:59 Nasal Cannula 5.00 08/17/21 19:50 35.8 82 20 116/78 (91) 93 Nasal Cannula 5.00 08/17/21 15:00 36.0 96 20 106/73 (84) 93 Nasal Cannula 5.00 08/17/21 11:45 36.8 101 16 104/69 (81) 96 Nasal Cannula 5.00 08/17/21 09:46 Nasal Cannula 5.00 08/17/21 08:06 36.5 76 20 126/84 (98) 98 Nasal Cannula 5.00 08/17/21 08:00 Nasal Cannula 5.00 I & O 08/18/21 06:59 Intake Total 1510 ml Balance 1510 ml Capillary Refill : Less Than 3 Seconds General Appearance: No Apparent Distress, WD/WN, Chronically ill HEENT: PERRL/EOMI, Pharynx Normal Neck: Normal Inspection, Supple Respiratory: No Accessory Muscle Use, No Respiratory Distress, Decreased Breath Sounds Cardiovascular: Regular Rate, Rhythm, No Edema Peripheral Pulses: 2+ Radial Pulses (R), 2+ Radial Pulses (L) Gastrointestinal: soft, distended, tenderness (LUQ), hernia (umbilical), hepatomegaly Extremity: Normal Inspection, No Calf Tenderness Neurologic/Psychiatric: Alert, Oriented x3, No Motor/Sensory Deficits Skin: Normal Color, Warm/Dry Lymphatic: No Adenopathy (supraclavicular or posterior cervical) Results Lab Microbiology 08/13/21 Gram Stain - Final, Resulted 08/13/21 Anaerobic Culture - Preliminary, Resulted No anaerobes isolated 08/13/21 Surgical Culture - Final, Resulted No growth 08/09/21 Gram Stain - Final, Complete 08/09/21 Body Fluid Culture - Final, Complete No growth 08/08/21 Blood Culture - Final, Complete No growth Assessment/Plan Assessment/Plan Assessment/Plan Intraperotineal masses - preliminary results of poorly differentiated adenocarcinoma, will place Port today Clears at breakfast, NPO after Ascites - Pleur-X catheter placement, drain every other day Constipation - + BM yesterday, will continue stool softener Bilateral pleural effusions with dependent atelectasis - not worse will monitor ZACK CASTILLO DO 08/18/21 1155: Subjective Time Seen by a Provider: 11:01 Subjective/Events-last exam Pt seen and examined. No changes. 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 states she k nows there are cancer cures out there and chemo is too damaging. They do not want port placed. I told them I can place it if they change their minds. Supervisory-Addendum Brief Verification & Attestation Participated in pt care: history, MDM, physical Personally performed: exam, history, MDM, supervision of care Care discussed with: Medical Student Procedures: n/a Verification and Attestation of Medical Student E/M Service A medical student performed and documented this service. I then reviewed and verified all information documented by the medical student and made modifications to such information, when appropriate. I personally performed a physical exam, medical decision making and then discussed any differences between the notes and made revisions as necessary to create one note. Zack Castillo , 08/18/21 , 11:55 KYLEE RAMOS [facility] Aug 18, 2021 07:11 ZACK CASTILLO DO Aug 18, 2021 11:55
[2021-08-18 07:18] LABS: BASOPHILS # (AUTO) 0.1 10^3/uL (0.0-0.1); BASOPHILS % (AUTO) 1 % (0-10); EOSINOPHILS # (AUTO) 0.1 10^3/uL (0.0-0.3); EOSINOPHILS % (AUTO) 2 % (0-10); HEMATOCRIT 39 % (40-54); HEMOGLOBIN 12.2 g/dL (13.3-17.7); LYMPHOCYTES # (AUTO) 1.2 10^3/uL (1.0-4.0); LYMPHOCYTES % (AUTO) 19 % (12-44); MEAN CORPUSCULAR HEMOGLOBIN 28 pg (25-34); MEAN CORPUSCULAR HGB CONC 31 g/dL (32-36); MEAN CORPUSCULAR VOLUME 88 fL (80-99); MEAN PLATELET VOLUME 11.2 fL (9.0-12.2); MONOCYTES # (AUTO) 0.7 10^3/uL (0.0-1.0); MONOCYTES % (AUTO) 10 % (0-12); NEUTROPHILS # (AUTO) 4.5 10^3/uL (1.8-7.8); NEUTROPHILS % (AUTO) 68 % (42-75); PLATELET COUNT 299 10^3/uL (130-400); WHITE BLOOD COUNT 6.6 10^3/uL (4.3-11.0)
[2021-08-18 07:35] LABS: ALBUMIN 2.7 GM/DL (3.2-4.5); BILIRUBIN,TOTAL 0.3 MG/DL (0.1-1.0); CALCIUM 8.2 MG/DL (8.5-10.1); CREATININE SERUM 0.68 MG/DL (0.60-1.30); POTASSIUM 4.1 MMOL/L (3.6-5.0); TOTAL PROTEIN 6.1 GM/DL (6.4-8.2)
[2021-08-18 08:00] VITALS: BP 99/67
[2021-08-18] MEDS: FUROSEMIDE 20 MG (LASIX) TAB PO SCH ×2 (09:00→09:48)
[2021-08-18] MEDS: SENNA W/DOCUSATE (SENOKOT S) TABLET PO SCH ×3 (09:00→22:09)
[2021-08-18] MEDS: polyethylene glycoL POWDER 17 GM (MIRALAX) PACK PO SCH ×2 (09:00→22:09)
[2021-08-18] MEDS: SPIRONOLACTONE 25 MG (ALDACTONE) TAB PO SCH ×2 (09:00→09:48)
[2021-08-18] MEDS: GABAPENTIN 100 MG (NEURONTIN) CAP PO SCH ×3 (09:00→22:09)
[2021-08-18] MEDS: NICOTINE 14 MG (NICODERM) PATCH TD SCH ×2 (09:00→09:48)
[2021-08-18] MEDS: morphine ER 30 MG (MS CONTIN) TAB PO SCH ×3 (09:00→22:09)
[2021-08-18] MEDS: ACETAMINOPHEN 500 MG TAB (TYLENOL) PO SCH ×3 (09:00→20:02)
[2021-08-18] MEDS: DOCUSATE SODIUM 100 MG (COLACE) CAP PO SCH ×3 (09:00→22:09)
[2021-08-18] MEDS: NS IV 1000 ML 1,000 ML IV SCH ×2 (09:48→19:38)
[2021-08-18 09:52] VITALS: BP 102/69
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
--- NOTE | 2021-08-18 14:19 | Progress Note ---
Progress Note Assessment/Plan Date Seen by Provider: Aug 18, 2021 Time Seen by Provider: 14:13 Events since last exam Pt is feeling better today. Pathology report from the peritoneal masses biopsy showed poorly differentiated adenocarcinoma. Pending the immunohistology to identify the primary sit e/origination. I spoke with patient in person and his over the phone. They do not want port and do not want chemotherapy at this point. But they will come to cancer center to have further discussion once he is discharged from the hospital. I told them I will see him in 1-2 days during the weekday after the discharge from the hospital. Please send him home with one week worth of Morphine 30mg ER bid and Oxycodone 5mg q 4-6 hr PRN along with the stool softener. Please notify the cancer center the discharge date to set up f/u appointment. Dr Molina and Dr. Castillo decide the discharge plan. He can be discharged from med/onc point of view. I will sign off now. Assessment/Plan A/P: 1. 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 He had negative cytology from the last paracentesis 07/17/2020. s/p explore lap showed multiple seeding/masses in the peritoneal cavity. Pathology revealed poorly differentiated adenocarcinoma. We are still awaiting for the immunohisto staining for the primary/origination. 2. No port at this point. 3. Tumor markers CEA, PSA were unremarkable. 4. Pain control with morphine ER 30mg bid and oxycodone 5mg q 4-6 hrs PRN along with stool softener. 5. I have patient my card with contact information at the cancer center. Vitals Last set of Vitals Signs Vital Signs Date Time Temp Pulse Resp B/P (MAP) Pulse Ox O2 Delivery O2 Flow Rate FiO2 08/18/21 09:52 78 24 102/69 (80) 97 5.00 08/18/21 09:00 Nasal Cannula 08/18/21 08:00 36.7 I&O I&O Intake and Output 08/18/21 00:00 Intake Total 1410 ml Output Total 875 ml Balance 535 ml Intake Oral 1410 ml Output Urine Total 275 ml Drainage Total 600 ml # Voids 2 # Bowel Movements 1 Labs Laboratory Tests 08/18/21 07:10: White Blood Count 6.6, Red Blood Count 4.39, Hemoglobin 12.2L, Hematocrit 39L, Mean Corpuscular Volume 88, Mean Corpuscular Hemoglobin 28, Mean Corpuscular Hemoglobin Concent 31L, Red Cell Distribution Width 13.9, Platelet Count 299, Mean Platelet Volume 11.2, Immature Granulocyte % (Auto) 1, Neutrophils (%) (Auto) 68, Lymphocytes (%) (Auto) 19, Monocytes (%) (Auto) 10, Eosinophils (%) (Auto) 2, Basophils (%) (Auto) 1, Neutrophils # (Auto) 4.5, Lymphocytes # (Auto) 1.2, Monocytes # (Auto) 0.7, Eosinophils # (Auto) 0.1, Basophils # (Auto) 0.1, Immature Granulocyte # (Auto) 0.1, Sodium Level 140, Potassium Level 4.1, Chloride Level 105, Carbon Dioxide Level 24, Anion Gap 11, Blood Urea Nitrogen 21H, Creatinine 0.68, Estimat Glomerular Filtration Rate 104, BUN/Creatinine Ratio 31, Glucose Level 178H, Calcium Level 8.2L, Corrected Calcium 9.2, Total Bilirubin 0.3, Aspartate Amino Transf (AST/SGOT) 10, Alanine Aminotransferase (ALT/SGPT) 12, Alkaline Phosphatase 56, Total Protein 6.1L, Albumin 2.7L Microbiology 08/13/21 Gram Stain - Final, Complete 08/13/21 Anaerobic Culture - Final, Complete No anaerobes isolated 08/13/21 Surgical Culture - Final, Complete No growth 08/09/21 Gram Stain - Final, Complete 08/09/21 Body Fluid Culture - Final, Complete No growth 08/08/21 Blood Culture - Final, Complete No growth TERRIE RAMOS MD Aug 18, 2021 14:19
[2021-08-18 16:00] VITALS: BP 113/75
[2021-08-18 20:00] VITALS: BP 122/74
[2021-08-18] MEDS: ALPRAZolam 0.5 MG (XANAX) TAB PO PRN (20:09)
[2021-08-18] MEDS: ONDANSETRON 4 MG/2 ML (SDV) Z0FRAN IV PRN (20:09)
[2021-08-19 00:59] VITALS: BP 107/66
[2021-08-19] MEDS: morphine INJ 4 MG/ML 1 ML (VIAL/SYRINGE) IV PRN ×3 (01:34→15:23)
[2021-08-19 04:01] VITALS: BP 106/74
[2021-08-19] MEDS: NS IV 1000 ML 1,000 ML IV SCH (04:47)
--- NOTE | 2021-08-19 07:38 | Progress Note - Surgery ---
[facility] 08/19/21 0738: Subjective Date Seen by a Provider: Aug 19, 2021 Time Seen by a Provider: 07:33 Subjective/Events-last exam Patient requested fluid to be drained from his abdomen last night. 350 mL removed. This morning, patient stated that this provided relief Does still have abdominal pain and shortness of breath Review of Systems General: No Chills, No Other Pulmonary: Dyspnea; No Cough Cardiovascular: No: Chest Pain, Palpitations Gastrointestinal: Abdominal Pain; No: Nausea, Vomiting Objective Exam Vital Signs Date Time Temp Pulse Resp B/P (MAP) Pulse Ox O2 Delivery O2 Flow Rate FiO2 08/19/21 04:01 36.7 80 22 106/74 (85) 97 Nasal Cannula 4.00 08/19/21 00:59 36.5 79 22 107/66 (80) 96 Nasal Cannula 4.00 08/18/21 20:00 36.5 95 22 122/74 (90) 95 Nasal Cannula 5.00 08/18/21 20:00 Nasal Cannula 4.00 08/18/21 18:34 Nasal Cannula 5.00 08/18/21 16:00 36.4 96 18 113/75 (88) 96 Nasal Cannula 5.00 08/18/21 09:52 78 24 102/69 (80) 97 5.00 08/18/21 09:00 97 Nasal Cannula 5.00 08/18/21 08:00 36.7 79 16 99/67 (78) 97 Nasal Cannula 5.00 I & O 08/19/21 07:00 Intake Total 1940 ml Output Total 700 ml Balance 1240 ml Capillary Refill : Less Than 3 Seconds General Appearance: Chronically ill, Thin HEENT: PERRL/EOMI, Pharynx Normal Neck: Non Tender, Supple Respiratory: Lungs Clear (anterior posts bilaterally), Normal Breath Sounds, No Accessory Muscle Use Cardiovascular: Regular Rate, Rhythm, No Edema, No Murmur Peripheral Pulses: 2+ Radial Pulses (R), 2+ Radial Pulses (L) Gastrointestinal: distended, tenderness (LUQ), hernia (umbilical), hepatomegaly Extremity: Normal Inspection Neurologic/Psychiatric: Alert, Oriented x3 Skin: Normal Color, Warm/Dry Lymphatic: No Adenopathy (supraclavicular or posterior cervical) Results Lab Microbiology 08/13/21 Gram Stain - Final, Complete 08/13/21 Anaerobic Culture - Final, Complete No anaerobes isolated 08/13/21 Surgical Culture - Final, Complete No growth 08/09/21 Gram Stain - Final, Complete 08/09/21 Body Fluid Culture - Final, Complete No growth 08/08/21 Blood Culture - Final, Complete No growth Assessment/Plan Assessment/Plan Assessment/Plan Intraperotineal masses - preliminary results of poorly differentiated adenocarcinoma Ascites - Pleur-X catheter placement, drain every other day Constipation - + BM yesterday, will continue stool softener Bilateral pleural effusions with dependent atelectasis - not worse will monitor Patient does not want surgery at this time. General surgery service will sign off ZACK CASTILLO DO 08/19/21 1051: Subjective Time Seen by a Provider: 10:41 Subjective/Events-last exam Pt seen and examined, he is refusing all meds and surgery. He currently has nausea and vomiting with abdominal pain. Review of Systems General: No Chills; Fatigue Pulmonary: Dyspnea; No Cough Cardiovascular: No: Chest Pain, Palpitations Gastrointestinal: Nausea, Vomiting, Abdominal Pain Objective Exam General Appearance: Chronically ill, Cachetic Respiratory: Lungs Clear (anterior posts bilaterally), No Accessory Muscle Use, No Respiratory Distress, Decreased Breath Sounds Cardiovascular: Regular Rate, Rhythm, No Murmur Gastrointestinal: distended, tenderness (LUQ), hernia (umbilical), hepatomegaly, other (incisions c/d/i) Assessment/Plan Assessment/Plan Assessment/Plan Intraperotineal masses - preliminary results of poorly differentiated adenocarcinoma Ascites - Pleur-X catheter placement, drain every other day Constipation - + BM yesterday, will continue stool softener Bilateral pleural effusions with dependent atelectasis - not worse will monitor Patient does not want surgery at this time. General surgery service will sign off Supervisory-Addendum Brief Verification & Attestation Participated in pt care: history, MDM, physical Personally performed: exam, history, MDM, supervision of care Care discussed with: Medical Student Procedures: n/a Verification and Attestation of Medical Student E/M Service A medical student performed and documented this service. I then reviewed and verified all information documented by the medical student and made modifications to such information, when appropriate. I personally performed a physical exam, medical decision making and then discussed any differences between the notes and made revisions as necessary to create one note. Zack Castillo , 08/19/21 , 10:51 KYLEE RAMOS [facility] Aug 19, 2021 07:38 ZACK CASTILLO DO Aug 19, 2021 10:51
[2021-08-19 08:01] VITALS: BP 112/72
[2021-08-19] MEDS: SENNA W/DOCUSATE (SENOKOT S) TABLET PO SCH (08:44)
[2021-08-19] MEDS: morphine ER 30 MG (MS CONTIN) TAB PO SCH (08:44)
[2021-08-19] MEDS: SPIRONOLACTONE 25 MG (ALDACTONE) TAB PO SCH (08:44)
[2021-08-19] MEDS: NICOTINE 14 MG (NICODERM) PATCH TD SCH ×2 (08:44→08:48)
[2021-08-19] MEDS: DOCUSATE SODIUM 100 MG (COLACE) CAP PO SCH (08:44)
[2021-08-19] MEDS: FUROSEMIDE 20 MG (LASIX) TAB PO SCH (08:44)
[2021-08-19] MEDS: ACETAMINOPHEN 500 MG TAB (TYLENOL) PO SCH ×2 (08:45→13:00)
[2021-08-19] MEDS: GABAPENTIN 100 MG (NEURONTIN) CAP PO SCH (08:46)
[2021-08-19] MEDS: polyethylene glycoL POWDER 17 GM (MIRALAX) PACK PO SCH (08:48)
[2021-08-19] MEDS: ONDANSETRON 4 MG/2 ML (SDV) Z0FRAN IV PRN (10:50)
[2021-08-19] MEDS ORDERED: SENN1TAB76 PO (11:16)
[2021-08-19] MEDS ORDERED: MORP-69 PO (11:16)
--- NOTE | 2021-08-19 11:17 | Discharge Summary ---
Discharge Summary Hospital Course Was the Problem List Reviewed?: Yes Problems/Dx: (1) Ascites Status: Acute Qualifiers: Qualified Codes: R18.8 - Other ascites (2) Abdominal pain Status: Acute (3) Omental mass Status: Chronic (4) Mass of left lung Status: Chronic (5) Tobacco abuse Status: Chronic (6) New onset type 2 diabetes mellitus Status: Acute (7) Delusional thoughts Status: Acute Hospital Course Date of Admission: Aug 10, 2021 at 16:42 Admission Diagnosis : Family Physician/Provider: No,Local Physician Date of Discharge: 08/19/21 Discharge Diagnosis: Assess & Plan/Chief Complaint Poorly Differentiated Adenocarcinoma - diagnostic laparoscopy 08/13 with biopsies, results likely poorly differentiated adenocarcinoma - flex sig sigmoid biopsy showed tubular adenoma - oncology following - surgery following, was plaaning on port today but pt refused - pt does not want treatment - will discuss with pt and about next steps Ascites - s/p therapeutic paracentesis, 3.5 L removed - may need repeat paracentesis soon - diagnostic laparoscopy 08/13 with biopsies - lasix and aldactone, pt refusing Anxiety - Xanax Constipation - flex sig shows internal hemorrhoids and fecal impaction - Bowel regimen, pt refusing T2DM - A1C 12.8% - pt refusing insulin Shoulder/Neck Pain - K Pad helped DVT ppx: lovenox Hospital Course: Hospital Course: Satya Newsome is a 61 year old male with PMH tobacco abuse who presented with abdominal pain. He has been in the emergency room several times in the past month with abdominal pain and swelling. He had a therapeutic paracentesis done earlier this month. He had a repeat paracentesis here with 3.5L removed. An ex lap was performed on 08/13 showing multiple seeding/masses in the peritoneal cavity, biopsies were taken and showed poorly differentiated adenocarcinoma. Results of immuno staining for primary origin are still pending. Patient was told of his diagnosis but is refusing any treatment nad refused port placement. He has refused most medical treatment during his hospital stay except for pain medicine and occasion stool softeners. He will be sent home with pain control of morphine ER 30mg BID and oxycodone 5mg q 4-6h PRN along with senna/docusate. NICO MEDEROS [facility] Labs and Pending Lab Test: Microbiology 08/13/21 Gram Stain - Final, Complete 08/13/21 Anaerobic Culture - Final, Complete No anaerobes isolated 08/13/21 Surgical Culture - Final, Complete No growth 08/09/21 Gram Stain - Final, Complete 08/09/21 Body Fluid Culture - Final, Complete No growth 08/08/21 Blood Culture - Final, Complete No growth Home Meds Active Stool Softener-Laxative Tablet (Sennosides/Docusate Sodium) 1 Each Tablet 1 Ea PO BID Oxycodone HCl 5 Mg Tablet 5-10 Mg PO Q4H PRN 7 Days MODERATE PAIN 5 MG SEVERE PAIN 10 MG Ondansetron Odt (Ondansetron) 4 Mg Tab.rapdis 4 Mg PO Q6H PRN 7 Days Spironolactone 25 Mg Tablet 50 Mg PO DAILY 30 Days Furosemide 20 Mg Tablet 20 Mg PO DAILY 30 Days Assessment/Pt Instructions Oncology follow-up Discharge Planning: <30 minutes discharge planning Discharge Instructions Discharge Diet: No Restrictions Activity as Tolerated: Yes Discharge Physical Examination Vital Signs Vital Signs Date Time Temp Pulse Resp B/P (MAP) Pulse Ox O2 Delivery O2 Flow Rate FiO2 08/19/21 09:00 Nasal Cannula 08/19/21 08:01 87 18 112/72 (85) 94 4.00 08/19/21 04:01 36.7 General Appearance: No Apparent Distress, WD/WN, Chronically ill Respiratory: Lungs Clear, Normal Breath Sounds Allergies: Coded Allergies: canola oil (Verified Allergy, Unknown, 07/17/21) Discharge Summary Date of Admission Aug 10, 2021 at 16:42 Date of Discharge Discharge Date: Aug 19, 2021 Admission Diagnosis Ascites Discharge Diagnosis Cancer treatment if patient does not decline (1) Ascites Status: Acute Qualifiers: Qualified Codes: R18.8 - Other ascites (2) Abdominal pain Status: Acute (3) Omental mass Status: Chronic (4) Mass of left lung Status: Chronic (5) Tobacco abuse Status: Chronic (6) New onset type 2 diabetes mellitus Status: Acute (7) Delusional thoughts Status: Acute BRIANNA RAMOS DO Aug 19, 2021 11:17
[2021-08-19 11:59] VITALS: BP 98/61
--- NOTE | 2021-08-19 12:10 | Discharge Summary ---
Discharge Summary Hospital Course Was the Problem List Reviewed?: Yes Problems/Dx: (1) Ascites Status: Acute Qualifiers: Qualified Codes: R18.8 - Other ascites (2) Abdominal pain Status: Acute (3) Omental mass Status: Chronic (4) Mass of left lung Status: Chronic (5) Tobacco abuse Status: Chronic (6) New onset type 2 diabetes mellitus Status: Acute (7) Delusional thoughts Status: Acute Hospital Course Date of Admission: Aug 10, 2021 at 16:42 Admission Diagnosis : Family Physician/Provider: No,Local Physician Date of Discharge: 08/19/21 Discharge Diagnosis: Assess & Plan/Chief Complaint Poorly Differentiated Adenocarcinoma - diagnostic laparoscopy 08/13 with biopsies, results likely poorly differentiated adenocarcinoma - flex sig sigmoid biopsy showed tubular adenoma - oncology following - surgery following, was plaaning on port today but pt refused - pt does not want treatment - will discuss with pt and about next steps Ascites - s/p therapeutic paracentesis, 3.5 L removed - may need repeat paracentesis soon - diagnostic laparoscopy 08/13 with biopsies - lasix and aldactone, pt refusing Anxiety - Xanax Constipation - flex sig shows internal hemorrhoids and fecal impaction - Bowel regimen, pt refusing T2DM - A1C 12.8% - pt refusing insulin Shoulder/Neck Pain - K Pad helped DVT ppx: lovenox Hospital Course: Hospital Course: Satya Newsome is a 61 year old male with PMH tobacco abuse who presented with abdominal pain. He has been in the emergency room several times in the past month with abdominal pain and swelling. He had a therapeutic paracentesis done earlier this month. He had a repeat paracentesis here with 3.5L removed. An ex lap was performed on 08/13 showing multiple seeding/masses in the peritoneal cavity, biopsies were taken and showed poorly differentiated adenocarcinoma. Results of immuno staining for primary origin are still pending. Patient was told of his diagnosis but is refusing any treatment nad refused port placement. He has refused most medical treatment during his hospital stay except for pain medicine and occasion stool softeners. He will be sent home with pain control of morphine ER 30mg BID and oxycodone 5mg q 4-6h PRN along with senna/docusate. NICO MEDEROS U Labs and Pending Lab Test: Microbiology 08/13/21 Gram Stain - Final, Complete 08/13/21 Anaerobic Culture - Final, Complete No anaerobes isolated 08/13/21 Surgical Culture - Final, Complete No growth 08/09/21 Gram Stain - Final, Complete 08/09/21 Body Fluid Culture - Final, Complete No growth 08/08/21 Blood Culture - Final, Complete No growth Home Meds Active Stool Softener-Laxative Tablet (Sennosides/Docusate Sodium) 1 Each Tablet 1 Ea PO BID Morphine Sulfate ER (Morphine Sulfate) 30 Mg Tablet.er 30 Mg PO Q12HR Oxycodone HCl 5 Mg Tablet 5-10 Mg PO Q4H PRN 7 Days MODERATE PAIN 5 MG SEVERE PAIN 10 MG Ondansetron Odt (Ondansetron) 4 Mg Tab.rapdis 4 Mg PO Q6H PRN 7 Days Spironolactone 25 Mg Tablet 50 Mg PO DAILY 30 Days Furosemide 20 Mg Tablet 20 Mg PO DAILY 30 Days Assessment/Pt Instructions PCP in 2 weeks Discharge Planning: <30 minutes discharge planning Discharge Instructions Discharge Diet: No Restrictions Discharge Physical Examination Vital Signs Vital Signs Date Time Temp Pulse Resp B/P (MAP) Pulse Ox O2 Delivery O2 Flow Rate FiO2 08/19/21 11:59 36.9 97 20 98/61 (73) 98 Nasal Cannula 4.00 Allergies: Coded Allergies: canola oil (Verified Allergy, Unknown, 07/17/21) Discharge Summary Date of Admission Aug 10, 2021 at 16:42 Date of Discharge Discharge Date: Aug 19, 2021 Admission Diagnosis Ascites Discharge Diagnosis Cancer treatment if patient does not decline (1) Ascites Status: Acute Qualifiers: Qualified Codes: R18.8 - Other ascites (2) Abdominal pain Status: Acute (3) Omental mass Status: Chronic (4) Mass of left lung Status: Chronic (5) Tobacco abuse Status: Chronic (6) New onset type 2 diabetes mellitus Status: Acute (7) Delusional thoughts Status: Acute BRIANNA RAMOS DO Aug 19, 2021 12:10
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
[2021-08-19 16:40] VITALS: BP 98/61
--- NOTE | 2021-08-19 19:33 | Physician Query Clarification ---
Physician Query-General Query to Physician: The medical record reflects the following clinical evidence: Clinical Indicators: RR on Admission 22, 02 sat on 2.5 L was 92% on admission P/F=65/57=060, RA readings 89%, requiring 02 entire admission 2L on day of admission up to 10L then titrated down to 4L at time of dismissal, had to be set up with Home 02 prior to dismissal History/Risk Factor(s): No history of home O2, Current everyday smoker, Plural effusions, Left Lung mass, ascites requiring paracentesis Treatment: Supplemental 02 up to 10 L per Oxymask, Placement of pleurex abdominal cath for abdomenal distention, frequent VS and sat monitoring, 1. Acute respiratory failure with hypoxia, present on admission 2. Other explanation of clinical findings 3. Unable to determine (no explanation for clinical findings) Please clarify and document your clinical opinion in the progress notes and discharge summary including the definitive and/or presumptive diagnosis, (suspected or probable), related to the above clinical findings. Please include clinical findings supporting your diagnosis. Amelia Sandoval MSN, RN Clinical Flooring Mechanic [phone] [email or web address] PHYSICIAN RESPONSE: Based on the clinical findings in the record, please respond to the query above on this document as an addendum. Physician Response: Physician Response 1 If you have questions please contact: Green Pipefitter: Ext: Thank you for your time and cooperation. Clinical Flooring Mechanic/Green Pipefitter This is a permanent part of the medical record AMELIA SANDOVAL Aug 19, 2021 19:33 BRIANNA RAMOS DO Aug 19, 2021 19:51
--- NOTE | 2021-08-19 20:26 | Physician Query Clarification ---
Physician Query-General Query to Physician: Clinical Validation Clarification : Nabor Elder Spontaneous bacterial peritonitis has been documented in the medical record. After study, do you consider spontaneous bacterial peritonitis a clinically valid diagnosis? If not clinically valid, please document " spontaneous bacterial peritonitis, ruled out" on the progress notes and/or discharge summary. 1. No, spontaneous bacterial peritonitis, not clinically valid/ruled out 2. Yes, spontaneous bacterial peritonitis is a clinically valid diagnosis 3. Other, with explanation of the clinical findings 4. Clinically undetermined, no explanation for the clinical findings Additional information: VS/Labs: HR 104, RR 22, BP 99/79, T 36.2 WBC 9.8 Abdominal pain, omental mass, peritoneal fluid culture with no growth, abdominal tissue culture no growth, blood cultures with no growth ceftriaxone IV daily x 5days Please remember a lack of response to the above will prompt a phone page by CDI/coding staff. In responding to this query, please exercise your independent professional judgment. The purpose of this communication is to more accurately reflect the complexity of your patients condition. The fact that a question is asked does not imply that any particular answer is desired or expected. Thank you for timely response to this clarification. Amelia Figueroa MSN, RN Clinical Oyster Fisherman PH [email or web address] signs of PHYSICIAN RESPONSE: Based on the clinical findings in the record, please respond to the query above on this document as an addendum. Physician Response: Physician Response 1 If you have questions please contact: Technician Biological Health: Ext: Thank you for your time and cooperation. Clinical Oyster Fisherman/Technician Biological Health This is a permanent part of the medical record AMELIA FIGUEROA Aug 19, 2021 20:26 BRIANNA ELDER DO Aug 19, 2021 20:32
== END 2021-08-19 16:40 | disposition home or self-care (01) | DRG 356 ==
LOC: EDUNIT# 11:19 → ER 11:21 → 4TH 14:10 → OBSVTOIN 08-10 16:42 → 4TH 08-12 01:02
PROVIDERS: ADMIT Internal Medicine; ATTEND Internal Medicine
PROC: 0W9G3ZZ Drainage of Peritoneal Cavity, Percutaneous Approach (ICD-10-PCS; principal; 2021-08-08)
PROC: 8E0ZXY6 Isolation (ICD-10-PCS; 2021-08-08)
PROC: 0DB Gastrointestinal System, Excision (ICD-10-PCS; 2021-08-12)
PROC: 0DBW3ZZ Excision of Peritoneum, Percutaneous Approach (ICD-10-PCS; 2021-08-13)
PROC: 0W9G30Z Drainage of Peritoneal Cavity with Drainage Device, Percutaneous Approach (ICD-10-PCS; 2021-08-13)
DX: C78.6 Secondary malignant neoplasm of retroperitoneum and peritoneum (principal); J96.01 Acute respiratory failure with hypoxia; R18.8 Other ascites; J90 Pleural effusion, not elsewhere classified; J98.11 Atelectasis; C80.1 Malignant (primary) neoplasm, unspecified; R91.8 Other nonspecific abnormal finding of lung field; D12.5 Benign neoplasm of sigmoid colon; F41.9 Anxiety disorder, unspecified; F22 Delusional disorders; E11.9 Type 2 diabetes mellitus without complications; F17.210 Nicotine dependence, cigarettes, uncomplicated; H91.90 Unspecified hearing loss, unspecified ear; G62.9 Polyneuropathy, unspecified; M19.91 Primary osteoarthritis, unspecified site; K59.00 Constipation, unspecified; Z87.820 Personal history of traumatic brain injury
CPT/HCPCS: 36415; 71045; 74022; 74177; 80048; 80053; 82042; 82378; 82728; 82945; 82947; 83036; 83540; 83550; 83605; 83615; 84153; 84157; 85025; 85610; 85730; 87040; 87070; 87075; 87205; 88305; 88341; 88342; 88344; 89051; 94760; 94761; G0378